=== PATIENT | female | born 1960 | race Native Hawaiian/Other Pacific Islander ===

== ENCOUNTER → 2017-09-15 | Outpatient (CLI) | payer BC ==
[~2017-09-15] MED LIST: ADVI200C9 PO; ALPHTAB PO; ATEN25TA PO; CARD240C6 PO; CARV6.25 PO; CODE30TA PO; DIFL150T PO; DILT1TAB4 PO; LOSA50TA PO; MULTTAB25 PO; NAPR220C22 PO; OMEP20TA93 PO; OXYC1CAP PO; OYST500T77 PO; PREV30CA36 PO; PROM25TA10 PO; STOO100T PO; TAB-TAB PO; [UNRECOGNIZED DRUG - CODE] PO
== END ==
LOC: CPRE 12:27
PROVIDERS: ATTEND Neurological Surgery
DX: Z01.812 Encounter for preprocedural laboratory examination (principal); M48.062 Spinal stenosis, lumbar region with neurogenic claudication; M51.36 Other intervertebral disc degeneration, lumbar region; M43.10 Spondylolisthesis, site unspecified; Z79.01 Long term (current) use of anticoagulants
CPT/HCPCS: 87640; 87641

== ENCOUNTER 2017-09-24 08:30 | Inpatient (IN) | payer BC ==
[~2017-09-24] VITALS: Ht 167.6 cm; Wt 82.0 kg
[~2017-09-24 08:30] MED LIST changes: -ADVI200C9 PO; -CARD240C6 PO; -CARV6.25 PO; -CODE30TA PO; -OYST500T77 PO; -PREV30CA36 PO; -TAB-TAB PO
[2017-10-08] MEDS ORDERED: METOPROLOL TARTRATE 25 MG TAB PO PRN (06:30)
[2017-10-08] MEDS ORDERED: LACTATED RINGER'S 1000 ML IV PRN (06:30)
[2017-10-08] MEDS ORDERED: SODIUM CHLOR 0.9% 1000 ML INJ 1,000 ML IV SCH (06:30)
[2017-10-08] MEDS ORDERED: SODIUM CHLORID 0.9% 500 ML IV PRN (06:30)
[2017-10-08] MEDS ORDERED: CHLORHEXIDINE GLUCONATE 2 % 1 PACK (2 CLOTHS) TOPICAL PRN (06:30)
[2017-10-08] MEDS ORDERED: THROMBIN (TOPICAL) 5,000 UNIT VIAL ONE ×2 (07:03→11:59)
[2017-10-08] MEDS ORDERED: GELFOAM SIZE 100 ONE ×2 (07:03→11:59)
[2017-10-08] MEDS ORDERED: VANCOMYCIN HCL 1000 MG VIAL ONE (07:03)
[2017-10-08] MEDS ORDERED: BUPIVACAINE/EPINEPHRINE 0.5% PF 30 ML VIAL ONE (07:03)
[2017-10-08] MEDS ORDERED: VANCOMYCIN 1 GM/200 ML INJ 200 ML IV ONE (07:30)
[2017-10-08] MEDS ORDERED: ACETAMINOPHEN 1000 MG/100 ML 100 ML IV ONE (08:16)
[2017-10-08] MEDS ORDERED: metroNIDAZOLE 500 MG INJ 100 ML IV ONE (08:52)
[2017-10-08] MEDS: VANCOMYCIN 1000 MG/NS 250 ML ON-CALL IV SCH ×4 (10:46→10:50)
[2017-10-08] MEDS ORDERED: ROCURONIUM INJ 50 MG/5 ML SYRINGE IV PUSH ONE (12:00)
[2017-10-08] MEDS ORDERED: GLYCOPYRROLATE 1 MG/5 ML SYRINGE IV PUSH ONE (12:00)
[2017-10-08] MEDS ORDERED: ePHEDrine/NS 25 MG/5 ML SYRINGE IV ONE (12:00)
[2017-10-08] MEDS ORDERED: PROPOFOL 200 MG/20 ML AMP IV ONE (12:00)
[2017-10-08] MEDS ORDERED: LIDOCAINE HCL 1% PF 5 ML SYRINGE OTHER ONE (12:00)
[2017-10-08] MEDS ORDERED: ONDANSETRON HCL 4 MG/2 ML VIAL IV ONE (12:00)
[2017-10-08] MEDS ORDERED: PHENYLEPHRINE HCL 10 MG/ML VIAL IV ONE (12:00)
[2017-10-08] MEDS ORDERED: NEOSTIGMINE 5 MG/5 ML SYRINGE IV PUSH ONE (12:00)
[2017-10-08] MEDS ORDERED: NORMOSOL R INJ 2,000 ML IV ONE (12:00)
[2017-10-08] MEDS ORDERED: PHENYLEPH/NS 1000 MCG/10 ML SYR IV ONE (12:00)
[2017-10-08] MEDS ORDERED: ACETAMINOPHEN 325 MG TAB PO PRN (13:30)
[2017-10-08] MEDS ORDERED: SENNOSIDES 8.6 MG TAB PO PRN (13:30)
[2017-10-08] MEDS ORDERED: MAGNESIUM SULFATE INJ 2 GM in SODIUM CHLORIDE 0.9% INJ 100 ML IV PRN (13:30)
[2017-10-08] MEDS ORDERED: diphenhydrAMINE HCL 50 MG/ML VIAL IV PUSH PRN (13:30)
[2017-10-08] MEDS ORDERED: cloNIDine HCL 0.1 MG TAB PO PRN (13:30)
[2017-10-08] MEDS ORDERED: MAGNESIUM HYDROXIDE SUSP 30 ML CUP PO PRN (13:30)
[2017-10-08] MEDS ORDERED: SODIUM CHLORIDE 0.9% FLUSH 10 ML FLUSH IV FLUSH PRN (13:30)
[2017-10-08] MEDS ORDERED: ALPHA D GALACTOSIDASE PO PRN (13:30)
[2017-10-08] MEDS ORDERED: CALCIUM GLUCONATE INJ 1 GM in SODIUM CHLORIDE 0.9% INJ 100 ML IV PRN (13:30)
[2017-10-08] MEDS ORDERED: NALOXONE HCL 0.4 MG/ML AMP IV PUSH PRN (13:30)
[2017-10-08] MEDS ORDERED: POTASSIUM CHLOR 20 MEQ PREMIX 100 ML IV PRN (13:30)
[2017-10-08] MEDS ORDERED: PROMETHAZINE HCL 25 MG TAB PO PRN (13:30)
[2017-10-08] MEDS ORDERED: ONDANSETRON HCL 4 MG/2 ML VIAL IV PUSH PRN (13:30)
[2017-10-08] MEDS ORDERED: ZOLPIDEM TARTRATE 5 MG TAB PO PRN (13:30)
[2017-10-08] MEDS ORDERED: MENTHOL LOZENGE BUCCAL PRN (13:30)
[2017-10-08] MEDS ORDERED: BISACODYL 10 MG SUPP RECTAL PRN (13:30)
[2017-10-08] MEDS ORDERED: MIDAZOLAM HCL 2 MG/2 ML VIAL ONE (13:42)
--- NOTE | 2017-10-08 13:43 | PD.OP ---
Carol Jorgensen M.D. Operative Report Date of Surgery: Oct 08, 2017 Preoperative Diagnosis: Intractable low back pain with radiculopathy; L3-4 central disc herniation with facet hypertrophy with associated spinal stenosis; L4-5 degenerative disc disease with facet arthropathy and associated spinal/foraminal stenosis; L4-5 postlaminectomy syndrome with spondylolisthesis Postoperative Diagnosis: Same Procedure: Lumbar L4-5 transforaminal interbody fusion; L3-4 and L4-5 decompressive laminotomies and microdiscectomy; L4-5 pedicle screw fixation; L4-5 interbody cage placement; microsurgical technique Anesthesia: Gen. endotracheal by Aparna spaulding Surgeon: Koko Cedillo M.D. Asbestos Siding Installer(s): Michelle Olivo Operation and Findings: Following initiation of general endotracheal anesthesia, the patient had a Zavala catheter placed along with sequential compression devices. A central line was placed given her poor peripheral IV access by the anesthesiologist. A gram of vancomycin and Diflucan 500 mg was administered intravenously and she was turned in a prone position on a Jayson frame, on a Juancho table, and all pressure points adequately padded. The lumbosacral region was then prepped with Chloraprep and sterilely draped with Ioban along the usual sterile draping. A midline skin incision was then made extending from the previous L4- L5 incision extending superiorly to the L3 level after infiltrating the skin with 0.5% Marcaine with epinephrine solution extending down through the fascia. The muscle fibers were split using avascular fatty plane and detached from the underlying facets, transverse process and lateral portion of lamina on the left side and a self-retaining retractor used for exposure. Intraoperative fluoroscopy was also used for level of confirmation along with microscope magnification for further dissection. There was significant facet and ligamentum flavum hypertrophy noted at the L3-4 and L4-5 levels with the hemilaminotomy noticed at the L4-5 level with epidural scar tissue. Left L4-5 medial facet was resected with a drill bit along with the lamina and there was severe foraminal and lateral recess stenosis from hypertrophied ligamentum flavum and facet which was decompressed. There was significant disc height collapse along with central disc protrusion also leading to the foraminal stenosis. Epidural hemostasis was achieved with bipolar cautery and Gelfoam with thrombin. Subsequently entered into the disc space at the L4-5 level with a #15 blade and holden were used for discectomy. I then placed PEEK cage packed with local autograft bone and more local autograft bone was packed adjacent to the cage in interspace for added interbody fusion. With placement of the cage, I was able to distract the interspace and opened up the foramen further bilaterally. Subsequently in order to facilitate the fusion and provide stabilization, pedicle screw fixation was undertaken using Stollings spine screws on entry point at the left L4-5 levels at the junction of the transverse process and facet. Subsequently using AP and lateral fluoroscopy tap and screw placement. The screws were then connected with a madison and locked in place with caps. The construct appeared very secure at this point. Left L3- 4 hemilaminotomy with medial facetectomy also undertaken and the underlying hypertrophied ligamentum flavum resected. With gentle thecal sac retraction central disc herniation was evident and the microdiscectomy undertaken. The area was then copiously irrigated with Vancomycin solution and powder. The retractors were removed and the bipolar cautery used for hemostasis. The muscle fascia was then approximated using 2-0 Vicryl interrupted stitches and then 3-0 Vicryl subcuticular stitches also placed in interrupted fashion. The final skin closure was completed with parker. A sterile dressing was then applied. The patient then turned in supine position, extubated and taken to recovery room. There were no intraoperative complications. All sponge and needle counts were correct at the end of procedure. Estimated blood loss about 100 ml. Koko Cedillo MD Oct 08, 2017 13:43
--- NOTE | 2017-10-08 13:43 | RADRPT ---
EXAM DATE/TIME: 10/08/2017 09:13 [facility] COMPARISON: FLUOROSCOPY PORTABLE UP TO 1HR, October 08, 2017, 0:00. INDICATIONS : L3-4 Laminectomy with lumbar fusion at L4-5. MEDICAL HISTORY : Hypertension. Carcinoma, breast. Osteoarthritis. GERD. SURGICAL HISTORY : Appendectomy. Cholecystectomy. Right side lumpectomy. ENCOUNTER: Initial ACUITY: 1 day PAIN SCORE: Non-responsive. LOCATION: Lumabr spine. FINDINGS: The examination demonstrates transpedicular screws on the left side across the L4-5 level. The screws appear well-positioned. The spacing material between the vertebral bodies appears well-positioned. CONCLUSION: 1. Surgical hardware in excellent position. 2. Good alignment of the lumbar spine. Armond Sultana MD on October 08, 2017 at 13:40 Board Certified Radiologist. This report was verified electronically.
[2017-10-08] MEDS ORDERED: *morphine SULFATE 8 MG/ML PERIprocedure ONLY ONE ×2 (13:44→14:25)
[2017-10-08] MEDS ORDERED: *ONDANSETRON 4 MG VIAL PERIprocedural Use ONLY ONE (13:45)
[2017-10-08] MEDS: PCA - TOTAL MG MORPHINE DELIVERED PER SHIFT SCH ×2 (14:00→21:35)
--- NOTE | 2017-10-08 14:07 | EKG ---
Date Performed: 10/08/2017 Time Performed: 06:41:15 PTAGE: 57 years EKG: Sinus rhythm WITH FIRST DEGREE AV BLOCK ABNORMAL ECG Since the PREVIOUS TRACING , no significant change noted PREVIOUS TRACIN05/31/2009 07.20 DOCTOR: Heather Muñiz Interpretating Date/Time 10/08/2017 13:57:58
[2017-10-08 14:13] LABS: AUTOMATED NEUTROPHIL # 2.5 TH/MM3 (1.8-7.7); BASOPHIL % 0.7 % (0.0-2.0); EOSINOPHIL # 0.1 TH/MM3 (0-0.4); EOSINOPHIL % 1.3 % (0.0-4.0); HEMATOCRIT 34.1 % (35.0-46.0); HEMOGLOBIN 11.4 GM/DL (11.6-15.3); LYMPH % 40.9 % (9.0-44.0); MEAN CELL VOLUME 84.8 FL (80.0-100.0); MEAN CORPUSCULAR HEMOGLOBIN 28.3 PG (27.0-34.0); MEAN CORPUSCULAR HGB CONC 33.4 % (32.0-36.0); MEAN PLATELET VOLUME 7.4 FL (7.0-11.0); MONO % 7.1 % (0.0-8.0); MONOCYTE # 0.4 TH/MM3 (0-0.9); PLATELET COUNT 245 TH/MM3 (150-450); RED BLOOD COUNT 4.03 MIL/MM3 (4.00-5.30); RED CELL DISTRIBUTION WIDTH 14.7 % (11.6-17.2); WHITE BLOOD COUNT 4.9 TH/MM3 (4.0-11.0)
[2017-10-08 14:35] LABS: BICARBONATE 28.3 MEQ/L (21.0-32.0); CREATININE 0.47 MG/DL (0.50-1.00)
--- NOTE | 2017-10-08 14:35 | RADRPT ---
EXAM DATE/TIME: 10/08/2017 13:43 [facility] COMPARISON: No previous studies available for comparison. INDICATIONS : Central line placement. MEDICAL HISTORY : Hypertension. Carcinoma, breast. Osteoarthritis. GERD. SURGICAL HISTORY : Appendectomy. Cholecystectomy. Lumpectomy, right. ENCOUNTER: Initial ACUITY: 1 day PAIN SCORE: Non-responsive. LOCATION: Bilateral chest FINDINGS: A single view of the chest demonstrates left central line in superior cava. Scattered subsegmental ai r space disease in the lungs. No effusion. No pneumothorax. CONCLUSION: 1. Left central line in superior vena cava without pneumothorax. Scattered subsegmental atelectasis i n the lungs. Baldomero Pelayo MD on October 08, 2017 at 14:33 Board Certified Radiologist. This report was verified electronically.
[2017-10-08] MEDS: NS + KCL 20 MEQ INJ 1,000 ML IV SCH (14:40)
[2017-10-08] MEDS ORDERED: DO NOT ADM ANY ANTICOAGULANT DRUGS PRN (14:45)
[2017-10-08] MEDS: MORPHINE SULFATE 30 MG/30 ML PCA IV SCH (16:18)
[2017-10-08 16:45] LABS: CALCIUM-PROTEIN CORRECTED 8.8 MG/DL (8.5-10.1); TOTAL PROTEIN 5.7 GM/DL (6.4-8.2)
[2017-10-08] MEDS: METOCLOPRAMIDE HCL 10 MG/2 ML VIAL IVS SCH (17:00)
[2017-10-08 17:23] VITALS: BP 111/64; PULSE 83; RESP 18; TEMP 96.6; O2SAT 99
--- NOTE | 2017-10-08 17:24 | PD.CONS ---
HPI Service [facility] Hospitalists Consult Requested By Dr. Cedillo Reason for Consult Medical management Primary Care Physician Carol Jorgensen M.D. Diagnoses: (1) Status post laminectomy (2) Intractable low back pain History of Present Illness This is a 57-year-old female patient with a known medical history of hypertension, GERD and breast cancer who underwent a lumbar L4-5 transforaminal interbody fusion; L3-4 and L4-5 decompressive laminotomies and microdiscectomy; L4-5 pedicle screw fixation; L4-5 interbody cage placement today by Dr. Cedillo. Hospitalist team has been consulted for medical management. Patient is seen and examined in room status post surgery, lethargic but awakens to voice. Rather poor historian at this time. Family at bedside assisting with history. There are no medical records for review at this time. Supposedly patient has been following with Dr. Cedillo in the outpatient setting for chronic back pain. Denies any recent fever, chills, cough, abdominal pain, nausea, vomiting, diarrhea or dysuria. Hypertension has been controlled with Cardizem, atenolol and losartan at home. Supposedly patient has been undergoing treatment for breast cancer with history of right breast lumpectomy with radiation, currently on p.o. chemotherapy. Oncologist is Dr. Monsivais from [facility]. PCP is Dr. Jorgensen. Review of Systems Constitutional: DENIES: Fever, Chills Eyes: DENIES: Blurred vision, Diplopia Respiratory: DENIES: Cough Cardiovascular: DENIES: Chest pain Gastrointestinal: DENIES: Abdominal pain Musculoskeletal: COMPLAINS OF: Joint pain, Back pain, Neck pain Psychiatric: DENIES: Anxiety Except as stated in HPI: all other systems reviewed are Neg Past Family Social History Allergies: Coded Allergies: adhesive (Unverified Allergy, Severe, SEVERE SKIN RXN, 10/08/17) PAPER TAPE O.K. coconut (Verified Allergy, Severe, HIVES, 10/08/17) diatrizoate meglumine (Unverified Allergy, Severe, HIVES, 10/08/17) gadobenic acid (Unverified Allergy, Severe, HIVES, 10/08/17) gadodiamide (Unverified Allergy, Severe, HIVES, 10/08/17) gadoteridol (Unverified Allergy, Severe, HIVES, 10/08/17) green pepper (Verified Allergy, Severe, HIVES, 10/08/17) iodixanol (Unverified Allergy, Severe, HIVES, 10/08/17) iohexol (Unverified Allergy, Severe, HIVES, 10/08/17) Past Medical History Osteoarthritis Breast cancer Hypertension GERD Hiatal hernia Herniated disc Past Surgical History Right knee tumor removal Cholecystectomy Appendectomy Hysterectomy Sinus surgery 7 Fungal tumor removal unspecified Left shoulder repair Lymph node removal Right breast lumpectomy with radiation Reported Medications Active Reported Fareston (Toremifene Citrate) 60 Mg Tab 60 Mg PO DAILY Aleve (Naproxen Sodium) 220 Mg Capsule 1 Cap PO DAILY Oxycodone (Oxycodone HCl) 5 Mg Cap 5 Mg PO Q6H PRN Phenergan (Promethazine HCl) 25 Mg Tablet 25 Mg PO Q6H PRN Beano (Bqarw-Q-Cdvzdlnluiskt) 150 Unit Tablet 1 Tab PO TID PRN Stool Softener (Docusate Sodium) 100 Mg Tab 1 Tab PO DAILY Multi For Her 50+ (Multiple Vitamins W/ Minerals) 0.4 Mg-250 Mcg Tab 1 Tab PO DAILY Losartan (Losartan Potassium) 50 Mg Tab 50 Mg PO DAILY Omeprazole 20 Mg Tab 20 Mg PO BID Atenolol 25 Mg Tab 25 Mg PO DAILY Diltiazem ER 24 HR 240 Mg Tony 240 Mg PO DAILY Active Ordered Medications Current Medications Medications (Trade) Dose Ordered Sig/Shira Route Start Time Stop Time Status Last Admin (Lopressor) 25 mg BOOM STICK WORKER PRN PO 10/08/17 06:30 10/11/17 06:29 (Chlorhexidine 2% Cloth) 3 pack BOOM STICK WORKER PRN TOPICAL 10/08/17 06:30 10/11/17 06:29 10/08/17 07:00 Vancomycin HCl 1000 mg/Sodium Chloride 250 ml @ 250 mls/hr BOOM STICK WORKER IV 10/08/17 06:30 10/11/17 06:29 10/08/17 10:50 (Tenormin) 25 mg DAILY PO 10/09/17 09:00 (Cardizem Cd) 240 mg DAILY PO 10/09/17 09:00 (Cozaar) 50 mg DAILY PO 10/09/17 09:00 (Theragran M Tab) 1 tab DAILY PO 10/09/17 09:00 (Protonix) 20 mg BID PO 10/08/17 21:00 Patient Own Medication PT OWN MED: Toremif... DAILY PO 10/09/17 09:00 Future Hold Potassium Chloride/Sodium Chloride 1,000 ml @ 100 mls/hr Q10H IV 10/08/17 16:00 10/08/17 14:40 (NS Flush) 2 ml UNSCH PRN IV FLUSH 10/08/17 13:30 (NS Flush) 2 ml BID IV FLUSH 10/08/17 21:00 Cefazolin Sodium 1000 mg/Sodium Chloride 100 ml @ 200 mls/hr Q8H IV 10/08/17 17:00 10/09/17 09:29 10/08/17 17:00 (Mag-Al Plus Susp Liq) 30 ml Q6H PRN PO 10/08/17 13:30 (Reglan Inj) 10 mg Q8H IVS 10/08/17 17:00 10/08/17 17:00 (Zofran Inj) 4 mg Q6H PRN IV PUSH 10/08/17 13:30 (Phenergan Inj) 25 mg Q4H PRN IM 10/08/17 13:30 Calcium Gluconate 1 gm/Sodium Chloride 110 ml @ 110 mls/hr UNSCH PRN IV 10/08/17 13:30 Potassium Chloride 100 ml @ 50 mls/hr UNSCH PRN IV 10/08/17 13:30 10/08/17 16:15 Magnesium Sulfate 2 gm/Sodium Chloride 104 ml @ 100 mls/hr UNSCH PRN IV 10/08/17 13:30 (Flexeril) 10 mg Q8H PO 10/08/17 18:00 (Catapres) 0.1 mg Q6H PRN PO 10/08/17 13:30 (Tylenol) 650 mg Q4H PRN PO 10/08/17 13:30 (Pomeroy Dar) 1 lozenge UNSCH PRN BUCCAL 10/08/17 13:30 (Ambien) 5 mg HS PRN PO 10/08/17 13:30 (Albuterol Neb) 2.5 mg Q4HR NEB PRN NEB 10/08/17 13:30 (Jessica-Colace) 1 tab BID PO 10/08/17 21:00 (Milk Of Magnesia Liq) 30 ml Q12H PRN PO 10/08/17 13:30 (Senokot) 17.2 mg Q12H PRN PO 10/08/17 13:30 (Dulcolax Supp) 10 mg DAILY PRN RECTAL 10/08/17 13:30 (Lactulose Liq) 30 ml DAILY PO 10/09/17 09:00 (Percocet 10-325 Mg) 1 tab Q4H PRN PO 10/08/17 13:30 (Percocet 10-325 Mg) 2 tab Q4H PRN PO 10/08/17 13:30 (Narcan Inj) 0.4 mg UNSCH PRN IV PUSH 10/08/17 13:30 (Benadryl Inj) 25 mg Q6H PRN IV PUSH 10/08/17 13:30 (Morphine 1 Mg/ ml FILTRATION SUPERVISOR) 30 mg UNSCH IV 10/08/17 13:30 10/08/17 16:18 FILTRATION SUPERVISOR Dosage Infused (Pha) 1 Q8HR .XX 10/08/17 14:00 Miscellaneous Information ALL NURSING DEPARTME... UNSCH PRN .XX 10/08/17 14:45 10/09/17 14:44 Family History Family medical history significant for unspecified cancer. And hypertension. Social History Patient denies any current or history of tobacco use, denies any alcohol use or illicit drug use. Physical Exam Vital Signs Vital Signs Date Time Temp Pulse Resp B/P (MAP) Pulse Ox O2 Delivery O2 Flow Rate FiO2 10/08/17 16:18 14 10/08/17 16:00 65 16 102/57 (72) 100 Nasal Cannula 3 10/08/17 15:00 67 16 106/57 (73) 96 Nasal Cannula 3 10/08/17 14:45 66 16 116/57 (76) 100 Nasal Cannula 3 10/08/17 14:30 63 16 110/57 (74) 100 Nasal Cannula 3 10/08/17 14:15 69 16 116/63 (80) 97 Nasal Cannula 3 10/08/17 14:00 77 16 117/56 (76) 94 Nasal Cannula 3 10/08/17 13:45 79 16 126/69 (88) 97 Nasal Cannula 3 10/08/17 13:30 98.5 100 16 126/69 (88) 98 Nasal Cannula 3 10/08/17 06:51 97.7 69 20 119/68 (85) 97 Physical Exam GENERAL: Well-developed, well-nourished patient in NAD. On supplemental O2. Status post surgery, with some drowsiness. Denies any pain. SKIN: Warm and dry. No rash. HEAD: Normocephalic. Atraumatic. EYES: Pupils equal and round. No scleral icterus. No injection or drainage. ENT: No nasal bleeding or discharge. Mucous membranes pink and moist. NECK: Supple. Trachea midline. CARDIOVASCULAR: Regular rate and rhythm. S1, S2 noted. No murmur appreciated. RESPIRATORY: No accessory muscle use. Clear to auscultation. Breath sounds equal bilaterally. GASTROINTESTINAL: Abdomen soft, non-tender, nondistended. Normoactive bowel sounds x4. MUSCULOSKELETAL: No obvious deformities. Extremities without clubbing, cyanosis , or edema. NEUROLOGICAL: Lethargic secondary to anesthesia. No obvious cranial nerve deficits. Motor grossly within normal limits. 5/5 muscle strength in bilateral upper and lower extremities. Normal speech. Laboratory Laboratory Tests Test 10/08/17 13:53 White Blood Count 4.9 Red Blood Count 4.03 Hemoglobin 11.4 Hematocrit 34.1 Mean Corpuscular Volume 84.8 Mean Corpuscular Hemoglobin 28.3 Mean Corpuscular Hemoglobin Concent 33.4 Red Cell Distribution Width 14.7 Platelet Count 245 Mean Platelet Volume 7.4 Neutrophils (%) (Auto) 50.0 Lymphocytes (%) (Auto) 40.9 Monocytes (%) (Auto) 7.1 Eosinophils (%) (Auto) 1.3 Basophils (%) (Auto) 0.7 Neutrophils # (Auto) 2.5 Lymphocytes # (Auto) 2.0 Monocytes # (Auto) 0.4 Eosinophils # (Auto) 0.1 Basophils # (Auto) 0.0 CBC Comment DIFF FINAL Differential Comment Blood Urea Nitrogen 8 Creatinine 0.47 Random Glucose 105 Total Protein 5.7 Calcium Level 8.0 Magnesium Level 2.0 Sodium Level 147 Potassium Level 3.5 Chloride Level 110 Carbon Dioxide Level 28.3 Anion Gap 9 Estimat Glomerular Filtration Rate 136 Protein Corrected Calcium 8.8 Result Diagram: 10/08/17 1353 10/08/17 1353 Imaging Last Impressions Lumbar Spine X-Ray 10/08/17 0000 Signed Impressions: Service Date/Time: September 09:13 - CONCLUSION: 1. Surgical hardware in excellent position. 2. Good alignment of the lumbar spine. Armond Sultana MD Chest X-Ray 10/08/17 0000 Signed Impressions: Service Date/Time: September 13:43 - CONCLUSION: 1. Left central line in superior vena cava without pneumothorax. Scattered subsegmental atelectasis in the lungs. Baldomero Pelayo MD Assessment and Plan Assessment and Plan This is a 57-year-old female patient with a known medical history of hypertension, GERD and breast cancer who underwent a lumbar L4-5 transforaminal interbody fusion; L3-4 and L4-5 decompressive laminotomies and microdiscectomy; L4-5 pedicle screw fixation; L4-5 interbody cage placement today by Dr. Cedillo. Hospitalist team has been consulted for medical management. Status post laminectomy with fusion by Dr. Cedillo 10/08/17 Management per neurosurgery team. Control pain, morphine FILTRATION SUPERVISOR for now. Percocet p.o. available. Per pain scale. Controlled nausea, Phenergan available. Monitor for any constipation, placed on multiple medications. Monitor for BM. Ensure hydration, continue IV fluids. Will order p.o. diet, advance as tolerated. CBC and BMP reviewed, essentially unremarkable. Supplemental as to as needed, keep oxygen saturations above 92%. Supportive care. Hypertension, chronic: Continue home medications including losartan, Cardizem and atenolol. Monitor BP trends. Controlled at this time. GERD: Continue home PPI. Right breast cancer, status post right lumpectomy with radiation currently undergoing p.o. chemotherapy: Continue home medications. Supportive care. DVT prophylaxis: SCDs. Chemical prophylaxis per neurosurgery recommendations. Thank you for this consultation, we will follow with you. Elizabeth Calderon Oct 08, 2017 17:24
[2017-10-08] MEDS ORDERED: PANTOPRAZOLE SOD 20 MG DELAYED RELEASE TAB PO ONE (18:00)
[2017-10-08] MEDS: CYCLOBENZAPRINE HCL 10 MG TAB PO SCH (18:13)
[2017-10-08 21:19] VITALS: BP 108/59; PULSE 84; RESP 18; TEMP 97.1; O2SAT 96
[2017-10-08] MEDS: PANTOPRAZOLE SOD 20 MG DELAYED RELEASE TAB PO SCH (21:35)
[2017-10-08] MEDS: DOCUSATE SODIUM 50 MG/SENNA 8.6 MG TAB PO SCH (21:35)
[2017-10-08] MEDS: SODIUM CHLORIDE 0.9% FLUSH 10 ML FLUSH IV FLUSH SCH (21:35)
[2017-10-08] MEDS: oxyCODONE/ACETAMINOPHEN 10 MG/325 MG TAB PO PRN (21:36)
[2017-10-08] MEDS: PROMETHAZINE INJ 25 MG/ML VIAL IM PRN (21:37)
[2017-10-09] VITALS (9 sets, daily range): BP systolic 106–137; BP diastolic 60–77; PULSE 74–114; RESP 17–18; TEMP 96.7–99.9; O2SAT 91–98
[2017-10-09] MEDS: METOCLOPRAMIDE HCL 10 MG/2 ML VIAL IVS SCH ×4 (00:27→23:55)
[2017-10-09] MEDS: NS + KCL 20 MEQ INJ 1,000 ML IV SCH ×3 (02:16→19:55)
[2017-10-09] MEDS: CYCLOBENZAPRINE HCL 10 MG TAB PO SCH ×2 (02:17→10:00)
[2017-10-09] MEDS: oxyCODONE/ACETAMINOPHEN 10 MG/325 MG TAB PO PRN ×3 (02:59→21:07)
[2017-10-09] MEDS: DILTIAZEM-CD 240 MG CAP ER PO SCH (08:45)
[2017-10-09] MEDS: DOCUSATE SODIUM 50 MG/SENNA 8.6 MG TAB PO SCH ×2 (08:45→19:53)
[2017-10-09] MEDS: MULTIVITAMINS/MINERALS THERAPEUTIC TAB PO SCH (08:45)
[2017-10-09] MEDS: LOSARTAN 50 MG TAB PO SCH (08:45)
[2017-10-09] MEDS: ATENOLOL 25 MG TAB PO SCH (08:45)
[2017-10-09] MEDS: PANTOPRAZOLE SOD 20 MG DELAYED RELEASE TAB PO SCH ×2 (08:52→19:53)
[2017-10-09] MEDS: SODIUM CHLORIDE 0.9% FLUSH 10 ML FLUSH IV FLUSH SCH ×2 (08:52→19:57)
[2017-10-09] MEDS ORDERED: PNEUMOCOCCAL POLYVALENT INJ 25 MCG/0.5 ML SYR IM ONE (09:00)
[2017-10-09] MEDS ORDERED: [UNRECOGNIZED DRUG - OTHER] PO SCH (09:00)
[2017-10-09] MEDS: LACTULOSE SYRUP 20 GM/30 ML CUP PO SCH (09:00)
--- NOTE | 2017-10-09 09:09 | HHI.NSPN ---
(Pawan Wilkerson) History Chief Complaint: Incisional pain and left leg pain. (Pawan Wilkerson) Interval History 10/09/17: Pt s/p lumbar L4-5 transforaminal interbody fusion; L3-4 and L4-5 decompressive laminotomies and microdiscectomy; L4-5 pedicle screw fixation; L4- 5 interbody cage placement on 10/08/17. She complains of severe pain this morning. She complains of incisional pain radiating into the left leg but is not clear on exact distribution. She states her legs feel sensitive all over. She also has some nausea. (Pawan Wilkerson) Review of Systems General: Negative for: fever, chills, insomnia Respiratory: Negative for: shortness of breath, cough, sputum Cardiovascular: Negative for: chest pain Gastrointestinal: Positive for: nausea, Negative for: vomitting, diarrhea, constipation (Pawan Wilkerson) Exam Results Vital Signs Date Time Temp Pulse Resp B/P (MAP) Pulse Ox O2 Delivery O2 Flow Rate FiO2 10/09/17 03:00 97.6 108 18 116/67 (83) 98 10/08/17 17:20 Nasal Cannula 3 Intake and Output 10/09/17 10/09/17 10/10/17 08:00 16:00 00:00 Intake Total 360 ml Output Total 650 ml Balance -290 ml (Pawan Wilkerson) Physical Examination General: Pt resting in bed complaining of pain. Resp: CTA bilaterally Heart: NSR no murmurs Abd: Soft positive bs Skin: No cyanosis or erythema. Pt currently to painful to role. Muscle: Moves LEs with antigravity strength but difficult to assess strength given current discomfort. Neuro: Pt awake and alert. Follows commands well. Speech clear and appropriate. LEs sensitive to touch. (Pawan Wilkerson) Lab, Micro, Other Results Last Impressions Lumbar Spine X-Ray 10/08/17 0000 Signed Impressions: Service Date/Time: September 09:13 - CONCLUSION: 1. Surgical hardware in excellent position. 2. Good alignment of the lumbar spine. Armond Sultana MD Chest X-Ray 10/08/17 0000 Signed Impressions: Service Date/Time: September 13:43 - CONCLUSION: 1. Left central line in superior vena cava without pneumothorax. Scattered subsegmental atelectasis in the lungs. Baldomero Pelayo MD Laboratory Tests Test 10/08/17 13:53 White Blood Count 4.9 TH/MM3 Red Blood Count 4.03 MIL/MM3 Hemoglobin 11.4 GM/DL Hematocrit 34.1 % Mean Corpuscular Volume 84.8 FL Mean Corpuscular Hemoglobin 28.3 PG Mean Corpuscular Hemoglobin Concent 33.4 % Red Cell Distribution Width 14.7 % Platelet Count 245 TH/MM3 Mean Platelet Volume 7.4 FL Neutrophils (%) (Auto) 50.0 % Lymphocytes (%) (Auto) 40.9 % Monocytes (%) (Auto) 7.1 % Eosinophils (%) (Auto) 1.3 % Basophils (%) (Auto) 0.7 % Neutrophils # (Auto) 2.5 TH/MM3 Lymphocytes # (Auto) 2.0 TH/MM3 Monocytes # (Auto) 0.4 TH/MM3 Eosinophils # (Auto) 0.1 TH/MM3 Basophils # (Auto) 0.0 TH/MM3 CBC Comment DIFF FINAL Differential Comment Blood Urea Nitrogen 8 MG/DL Creatinine 0.47 MG/DL Random Glucose 105 MG/DL Total Protein 5.7 GM/DL Calcium Level 8.0 MG/DL Magnesium Level 2.0 MG/DL Sodium Level 147 MEQ/L Potassium Level 3.5 MEQ/L Chloride Level 110 MEQ/L Carbon Dioxide Level 28.3 MEQ/L Anion Gap 9 MEQ/L Estimat Glomerular Filtration Rate 136 ML/MIN Protein Corrected Calcium 8.8 MG/DL (Pawan Wilkerson) Medical Decision Making Impression and Plan A: 57 y/o FM s/p L3/L4 and L4/L5 decompressive laminectomy with L4/L5 TLIF with cage and pedicle screw fixation. P: Continue to monitor Discussed with RN will continue with FUNERAL SALES MANAGER and also use the oral pain medication for longer lasting pain control. Zofran for anti emetic Diflucan for fungal per pts request. Quick draw lumbar brace on when oob. (Pawan Wilkerson) Attending Statement The exam, history, and the medical decision-making described in the above note were completed with the assistance of the mid-level provider. I reviewed and agree with the findings presented. I attest that I had a [id number] encounter with the patient on the same day, and personally performed and documented my assessment and findings in the medical record. Continue with pain control and IV fluids. Encouraged her to sit up in chair and ambulate with assistance. Zavala removed and voiding well. Chemical DVT prophylaxis to initiate 48 hours postop and continue with mechanical DVT prophylaxis for now. Will require inpatient rehabilitation. (Koko Cedillo MD) Pawan Wilkerson Oct 09, 2017 09:09 Koko Cedillo MD Oct 09, 2017 13:39
[2017-10-09] MEDS ORDERED: FLUCONAZOLE 100 MG TAB PO ONE (09:45)
[2017-10-09 12:15] LABS: AUTOMATED NEUTROPHIL # 9.9 TH/MM3 (1.8-7.7); BASOPHIL % 0.4 % (0.0-2.0); EOSINOPHIL % 0.1 % (0.0-4.0); HEMOGLOBIN 11.9 GM/DL (11.6-15.3); LYMPH % 10.5 % (9.0-44.0); LYMPHOCYTE # 1.3 TH/MM3 (1.0-4.8); MEAN CELL VOLUME 85.5 FL (80.0-100.0); MEAN CORPUSCULAR HEMOGLOBIN 28.2 PG (27.0-34.0); MEAN PLATELET VOLUME 7.7 FL (7.0-11.0); MONO % 7.9 % (0.0-8.0); NEUT % 81.1 % (16.0-70.0); PLATELET COUNT 251 TH/MM3 (150-450); RED BLOOD COUNT 4.21 MIL/MM3 (4.00-5.30); RED CELL DISTRIBUTION WIDTH 15.1 % (11.6-17.2); WHITE BLOOD COUNT 12.2 TH/MM3 (4.0-11.0)
[2017-10-09 12:29] LABS: CALCIUM 8.5 MG/DL (8.5-10.1); CREATININE 0.63 MG/DL (0.50-1.00)
--- NOTE | 2017-10-09 12:55 | HHI.PR ---
Subjective Remarks Follow-up on patient status post lumbar laminectomy and fusion L3 to L5. Patient seen and examined. Patient complains of significant pain. She is somnolent and repetitively falls asleep during questioning however she awakes easily and answers questions appropriately. She complains of nausea. She's been unable to tolerate diet. She denies any fever or chills. Denies any chest pain or shortness of breath. She denies any vomiting or abdominal pain. She is afebrile. VSS. Objective Vitals Vital Signs Date Time Temp Pulse Resp B/P (MAP) Pulse Ox O2 Delivery O2 Flow Rate FiO2 10/09/17 12:00 96.7 111 18 122/74 (90) 91 10/09/17 10:38 97 Nasal Cannula 3.00 10/09/17 08:00 97.4 114 18 132/65 (87) 97 10/09/17 03:00 97.6 108 18 116/67 (83) 98 10/09/17 00:11 96.7 105 18 106/70 (82) 97 10/08/17 21:35 18 10/08/17 21:19 97.1 84 18 108/59 (75) 96 10/08/17 17:23 96.6 83 18 111/64 (80) 99 10/08/17 17:20 69 16 105/63 (77) 98 Nasal Cannula 3 10/08/17 17:00 67 16 101/63 (76) 100 Nasal Cannula 3 10/08/17 16:18 14 10/08/17 16:00 65 16 102/57 (72) 100 Nasal Cannula 3 10/08/17 15:00 67 16 106/57 (73) 96 Nasal Cannula 3 10/08/17 14:45 66 16 116/57 (76) 100 Nasal Cannula 3 10/08/17 14:30 63 16 110/57 (74) 100 Nasal Cannula 3 10/08/17 14:15 69 16 116/63 (80) 97 Nasal Cannula 3 10/08/17 14:00 77 16 117/56 (76) 94 Nasal Cannula 3 10/08/17 14:00 16 10/08/17 13:45 79 16 126/69 (88) 97 Nasal Cannula 3 10/08/17 13:30 98.5 100 16 126/69 (88) 98 Nasal Cannula 3 I/O 10/08/17 10/08/17 10/08/17 10/09/17 10/09/17 10/09/17 07:00 15:00 23:00 07:00 15:00 23:00 Intake Total 2000 ml 740 ml 360 ml Output Total 800 ml 1025 ml 650 ml Balance 1200 ml -285 ml -290 ml Intake Oral 480 ml 360 ml IV Total 260 ml Other 2000 ml Output Urine Total 700 ml 1025 ml 650 ml Estimated Blood Loss 100 ml # Bowel Movements 0 0 Result Diagram: 10/09/17 1117 10/09/17 1117 Imaging Last Impressions Lumbar Spine X-Ray 10/08/17 0000 Signed Impressions: Service Date/Time: September 09:13 - CONCLUSION: 1. Surgical hardware in excellent position. 2. Good alignment of the lumbar spine. Armond Sultana MD Chest X-Ray 10/08/17 0000 Signed Impressions: Service Date/Time: September 13:43 - CONCLUSION: 1. Left central line in superior vena cava without pneumothorax. Scattered subsegmental atelectasis in the lungs. Baldomero Pelayo MD Objective Remarks GENERAL: Well-nourished, well-developed female patient in [facility]. Somnolent. Easily arousable with voice. SKIN: Warm and dry. No rash. HEAD: Normocephalic. Atraumatic. EYES: EOMI. No scleral icterus. No injection or drainage. ENT: No nasal bleeding or discharge. Mucous membranes pink and moist. NECK: Trachea midline. CARDIOVASCULAR: Tachycardic. S1, S2 noted. No murmur appreciated. RESPIRATORY: Nonlabored. Clear to auscultation. Breath sounds equal bilaterally. GASTROINTESTINAL: Abdomen soft, non-tender, nondistended. Hypoactive bowel sounds x4. MUSCULOSKELETAL: No obvious deformities. Extremities without clubbing, cyanosis , or edema. NEUROLOGICAL: Awake and alert. No obvious cranial nerve deficits. Able to move all extremities spontaneously. No focal neurologic findings appreciated. Normal speech. PSYCHIATRIC: Somnolent. Appropriate mood and affect; insight and judgment normal. Procedures s/p umbar L4-5 transforaminal interbody fusion; L3-4 and L4-5 decompressive laminotomies and microdiscectomy; L4-5 pedicle screw fixation; L4-5 interbody cage placement on 10/08/17 Medications and IVs Current Medications Medications (Trade) Dose Ordered Sig/Shira Route Start Time Stop Time Status Last Admin (Lopressor) 25 mg AUTO DEALER PRN PO 10/08/17 06:30 10/11/17 06:29 (Chlorhexidine 2% Cloth) 3 pack AUTO DEALER PRN TOPICAL 10/08/17 06:30 10/11/17 06:29 10/08/17 07:00 Vancomycin HCl 1000 mg/Sodium Chloride 250 ml @ 250 mls/hr AUTO DEALER IV 10/08/17 06:30 10/11/17 06:29 10/08/17 10:50 (Tenormin) 25 mg DAILY PO 10/09/17 09:00 10/09/17 08:45 (Cardizem Cd) 240 mg DAILY PO 10/09/17 09:00 10/09/17 08:45 (Cozaar) 50 mg DAILY PO 10/09/17 09:00 10/09/17 08:45 (Theragran M Tab) 1 tab DAILY PO 10/09/17 09:00 10/09/17 08:45 (Protonix) 20 mg BID PO 10/08/17 21:00 10/09/17 08:52 Patient Own Medication PT OWN MED: Toremif... DAILY PO 10/09/17 09:00 Future Hold Potassium Chloride/Sodium Chloride 1,000 ml @ 100 mls/hr Q10H IV 10/08/17 16:00 10/09/17 12:00 (NS Flush) 2 ml UNSCH PRN IV FLUSH 10/08/17 13:30 10/09/17 00:28 (NS Flush) 2 ml BID IV FLUSH 10/08/17 21:00 10/09/17 08:52 (Mag-Al Plus Susp Liq) 30 ml Q6H PRN PO 10/08/17 13:30 (Reglan Inj) 10 mg Q8H IVS 10/08/17 17:00 10/09/17 08:44 (Zofran Inj) 4 mg Q6H PRN IV PUSH 10/08/17 13:30 10/08/17 18:13 (Phenergan Inj) 25 mg Q4H PRN IM 10/08/17 13:30 10/08/17 21:37 Calcium Gluconate 1 gm/Sodium Chloride 110 ml @ 110 mls/hr UNSCH PRN IV 10/08/17 13:30 Potassium Chloride 100 ml @ 50 mls/hr UNSCH PRN IV 10/08/17 13:30 10/08/17 16:15 Magnesium Sulfate 2 gm/Sodium Chloride 104 ml @ 100 mls/hr UNSCH PRN IV 10/08/17 13:30 (Flexeril) 10 mg Q8H PO 10/08/17 18:00 10/09/17 10:00 (Catapres) 0.1 mg Q6H PRN PO 10/08/17 13:30 (Tylenol) 650 mg Q4H PRN PO 10/08/17 13:30 ([place] Dar) 1 lozenge UNSCH PRN BUCCAL 10/08/17 13:30 (Ambien) 5 mg HS PRN PO 10/08/17 13:30 (Albuterol Neb) 2.5 mg Q4HR NEB PRN NEB 10/08/17 13:30 (Jessica-Colace) 1 tab BID PO 10/08/17 21:00 10/09/17 08:45 (Milk Of Magnesia Liq) 30 ml Q12H PRN PO 10/08/17 13:30 (Senokot) 17.2 mg Q12H PRN PO 10/08/17 13:30 (Dulcolax Supp) 10 mg DAILY PRN RECTAL 10/08/17 13:30 (Lactulose Liq) 30 ml DAILY PO 10/09/17 09:00 10/09/17 09:00 (Percocet 10-325 Mg) 1 tab Q4H PRN PO 10/08/17 13:30 10/09/17 02:59 (Percocet 10-325 Mg) 2 tab Q4H PRN PO 10/08/17 13:30 (Narcan Inj) 0.4 mg UNSCH PRN IV PUSH 10/08/17 13:30 (Benadryl Inj) 25 mg Q6H PRN IV PUSH 10/08/17 13:30 (Morphine 1 Mg/ ml CUFF MATCHER) 30 mg UNSCH IV 10/08/17 13:30 10/08/17 16:18 CUFF MATCHER Dosage Infused (Pha) 1 Q8HR .XX 10/08/17 14:00 10/08/17 21:35 Miscellaneous Information ALL NURSING DEPARTME... UNSCH PRN .XX 10/08/17 14:45 10/09/17 14:44 A/P Problem List: (1) Status post laminectomy ICD Code: Z98.890 - Other specified postprocedural states (2) Intractable low back pain ICD Code: M54.5 - Low back pain Assessment and Plan This is a 57-year-old female patient with a known medical history of hypertension, GERD and breast cancer who underwent a lumbar L4-5 transforaminal interbody fusion; L3-4 and L4-5 decompressive laminotomies and microdiscectomy; L4-5 pedicle screw fixation; L4-5 interbody cage placement by Dr. Cedillo. Hospitalist team has been consulted for medical management. Status post laminectomy with fusion by Dr. Cedillo 10/08/17 Management per neurosurgery team. Lumbar brace on when OOB. Change Flexeril from scheduled to prn due to sedation Control pain, morphine CUFF MATCHER for now. Percocet p.o. available per pain scale with bowel regimen Zofran prn nausea Supplemental as to as needed, keep oxygen saturations above 92%. Supportive care. Leukocytosis patient is afebrile CXR 09/24 shows scattered subsegmental atelectasis in the lungs. IS at the bedside, encouraged use. obtain UA, if negative repeat CXR obtain lactic acid continue on IVF repeat CBC in am Hypertension, chronic, controlled Continue home medications including losartan, Cardizem and atenolol. Monitor BP trends and adjust treatment accordingly. GERD Continue home PPI. Right breast cancer, status post right lumpectomy with radiation currently undergoing p.o. chemotherapy: Continue home medications. Supportive care. DVT prophylaxis: Lovenox 40mg sq Regine Tran Oct 09, 2017 12:55
[2017-10-09] MEDS: PCA - TOTAL MG MORPHINE DELIVERED PER SHIFT SCH ×2 (14:00→21:07)
[2017-10-09] MEDS ORDERED: CYCLOBENZAPRINE HCL 10 MG TAB PO PRN (18:00)
[2017-10-10] MEDS: oxyCODONE/ACETAMINOPHEN 10 MG/325 MG TAB PO PRN ×5 (02:45→23:20)
[2017-10-10 05:00] VITALS: BP 126/63; PULSE 103; RESP 18; TEMP 98.9; O2SAT 97
[2017-10-10 05:25] LABS: BILIRUBIN, URINE NEG (NEG); BLOOD, URINE TRACE (NEG); GLUCOSE,URINE NEG (NEG); KETONE, URINE 40 mg/dL (NEG); MUCUS URINE FEW /lpf (OCC); NITRITE,URINE NEG (NEG); PH, URINE 5.5 (5.0-8.5); SQUAMOUS EPITHELIAL CELL URINE 2 /hpf (0-5); TRANSITIONAL EPI CELLS, URINE 1 /hpf; URINE COLOR YELLOW (YELLW/STRAW); URINE LEUKOCYTE ESTERASE NEG (NEG)
[2017-10-10] MEDS: MORPHINE SULFATE 30 MG/30 ML PCA IV SCH (06:17)
[2017-10-10] MEDS: PCA - TOTAL MG MORPHINE DELIVERED PER SHIFT SCH ×3 (06:22→22:00)
[2017-10-10 06:58] LABS: BASOPHIL # 0.1 TH/MM3 (0-0.2); BASOPHIL % 0.5 % (0.0-2.0); EOSINOPHIL % 0.1 % (0.0-4.0); HEMATOCRIT 33.7 % (35.0-46.0); HEMOGLOBIN 11.3 GM/DL (11.6-15.3); LYMPH % 13.7 % (9.0-44.0); LYMPHOCYTE # 1.8 TH/MM3 (1.0-4.8); MEAN CELL VOLUME 84.6 FL (80.0-100.0); MEAN CORPUSCULAR HEMOGLOBIN 28.3 PG (27.0-34.0); MEAN CORPUSCULAR HGB CONC 33.5 % (32.0-36.0); MEAN PLATELET VOLUME 7.6 FL (7.0-11.0); MONO % 9.7 % (0.0-8.0); MONOCYTE # 1.3 TH/MM3 (0-0.9); PLATELET COUNT 244 TH/MM3 (150-450); RED BLOOD COUNT 3.99 MIL/MM3 (4.00-5.30); RED CELL DISTRIBUTION WIDTH 15.1 % (11.6-17.2); WHITE BLOOD COUNT 13.2 TH/MM3 (4.0-11.0)
[2017-10-10 07:09] LABS: PHOSPHORUS 2.3 MG/DL (2.5-4.9)
[2017-10-10 08:00] VITALS: BP 127/75; PULSE 122; RESP 19; TEMP 101; O2SAT 93
[2017-10-10] MEDS: MULTIVITAMINS/MINERALS THERAPEUTIC TAB PO SCH (08:03)
[2017-10-10] MEDS: LACTULOSE SYRUP 20 GM/30 ML CUP PO SCH (08:03)
[2017-10-10] MEDS: ATENOLOL 25 MG TAB PO SCH (08:03)
[2017-10-10] MEDS: PANTOPRAZOLE SOD 20 MG DELAYED RELEASE TAB PO SCH ×2 (08:03→20:01)
[2017-10-10] MEDS: LOSARTAN 50 MG TAB PO SCH (08:03)
[2017-10-10] MEDS: DILTIAZEM-CD 240 MG CAP ER PO SCH (08:03)
[2017-10-10] MEDS: DOCUSATE SODIUM 50 MG/SENNA 8.6 MG TAB PO SCH ×2 (08:04→20:04)
[2017-10-10] MEDS: METOCLOPRAMIDE HCL 10 MG/2 ML VIAL IVS SCH ×3 (08:04→23:20)
[2017-10-10] MEDS: SODIUM CHLORIDE 0.9% FLUSH 10 ML FLUSH IV FLUSH SCH ×2 (09:00→20:05)
[2017-10-10] MEDS: ALUMINUM/MAGNESIUM/SIMETH 30 ML CUP PO PRN ×2 (11:21→20:06)
[2017-10-10 12:00] VITALS: BP 124/60; PULSE 92; RESP 18; TEMP 98.8; O2SAT 94
--- NOTE | 2017-10-10 13:46 | HHI.PR ---
Subjective Remarks This is a 57-year-old female patient with a known medical history of hypertension, GERD and breast cancer who underwent a lumbar L4-5 transforaminal interbody fusion; L3-4 and L4-5 decompressive laminotomies and microdiscectomy; L4-5 pedicle screw fixation; L4-5 interbody cage placement today by Dr. Cedillo. Hospitalist team has been consulted for medical management. Patient is seen and examined in room status post surgery, lethargic but awakens to voice. Rather poor historian at this time. Family at bedside assisting with history. There are no medical records for review at this time. Supposedly patient has been following with Dr. Cedillo in the outpatient setting for chronic back pain. Denies any recent fever, chills, cough, abdominal pain, nausea, vomiting, diarrhea or dysuria. Hypertension has been controlled with Cardizem, atenolol and losartan at home. Supposedly patient has been undergoing treatment for breast cancer with history of right breast lumpectomy with radiation, currently on p.o. chemotherapy. Oncologist is Dr. Monsivais from [facility]. PCP is Dr. Jorgensen. 3-16 Follow-up on patient status post lumbar laminectomy and fusion L3 to L5. Patient seen and examined. Patient complains of significant pain. She is somnolent and repetitively falls asleep during questioning however she awakes easily and answers questions appropriately. She complains of nausea. She's been unable to tolerate diet. She denies any fever or chills. Denies any chest pain or shortness of breath. She denies any vomiting or abdominal pain. She is afebrile. VSS. 3-17 said some issues with some GERD Make sure she is on something for this Continue physical therapy and Occupational Therapy. A.m. labs discussed with patient and RN And case management Objective Vitals Vital Signs Date Time Temp Pulse Resp B/P (MAP) Pulse Ox O2 Delivery O2 Flow Rate FiO2 10/10/17 12:00 98.8 92 18 124/60 (81) 94 10/10/17 08:00 101.0 122 19 127/75 (92) 93 10/10/17 06:22 18 10/10/17 06:17 18 10/10/17 05:00 98.9 103 18 126/63 (84) 97 10/09/17 23:56 97.4 103 18 126/60 (82) 92 10/09/17 21:15 97 Nasal Cannula 3.00 10/09/17 21:07 19 10/09/17 20:05 97.4 74 17 122/77 (92) 97 10/09/17 16:00 99.9 109 18 137/72 (93) 95 I/O 10/09/17 10/09/17 10/09/17 10/10/17 10/10/17 10/10/17 07:00 15:00 23:00 07:00 15:00 23:00 Intake Total 360 ml 480 ml 240 ml Output Total 650 ml Balance -290 ml 480 ml 240 ml Intake Oral 360 ml 480 ml 240 ml Output Urine Total 650 ml # Voids 6 2 # Bowel Movements 0 0 0 Result Diagram: 10/10/17 0623 10/09/17 1117 Other Results Laboratory Tests Test 10/08/17 13:53 10/09/17 11:17 10/09/17 19:33 10/10/17 05:00 White Blood Count 4.9 TH/MM3 12.2 TH/MM3 Red Blood Count 4.03 MIL/MM3 4.21 MIL/MM3 Hemoglobin 11.4 GM/DL 11.9 GM/DL Hematocrit 34.1 % 36.0 % Mean Corpuscular Volume 84.8 FL 85.5 FL Mean Corpuscular Hemoglobin 28.3 PG 28.2 PG Mean Corpuscular Hemoglobin Concent 33.4 % 33.0 % Red Cell Distribution Width 14.7 % 15.1 % Platelet Count 245 TH/MM3 251 TH/MM3 Mean Platelet Volume 7.4 FL 7.7 FL Neutrophils (%) (Auto) 50.0 % 81.1 % Lymphocytes (%) (Auto) 40.9 % 10.5 % Monocytes (%) (Auto) 7.1 % 7.9 % Eosinophils (%) (Auto) 1.3 % 0.1 % Basophils (%) (Auto) 0.7 % 0.4 % Neutrophils # (Auto) 2.5 TH/MM3 9.9 TH/MM3 Lymphocytes # (Auto) 2.0 TH/MM3 1.3 TH/MM3 Monocytes # (Auto) 0.4 TH/MM3 1.0 TH/MM3 Eosinophils # (Auto) 0.1 TH/MM3 0.0 TH/MM3 Basophils # (Auto) 0.0 TH/MM3 0.0 TH/MM3 CBC Comment DIFF FINAL AUTO DIFF Differential Comment AUTO DIFF CONFIRMED Blood Urea Nitrogen 8 MG/DL 7 MG/DL Creatinine 0.47 MG/DL 0.63 MG/DL Random Glucose 105 MG/DL 96 MG/DL Total Protein 5.7 GM/DL Calcium Level 8.0 MG/DL 8.5 MG/DL Magnesium Level 2.0 MG/DL Sodium Level 147 MEQ/L 138 MEQ/L Potassium Level 3.5 MEQ/L 3.6 MEQ/L Chloride Level 110 MEQ/L 105 MEQ/L Carbon Dioxide Level 28.3 MEQ/L 26.0 MEQ/L Anion Gap 9 MEQ/L 7 MEQ/L Estimat Glomerular Filtration Rate 136 ML/MIN 97 ML/MIN Protein Corrected Calcium 8.8 MG/DL Lactic Acid Level 0.8 mmol/L Urine Color YELLOW Urine Turbidity CLEAR Urine pH 5.5 Urine Specific [place] 1.018 Urine Protein TRACE mg/dL Urine Glucose (UA) NEG mg/dL Urine Ketones 40 mg/dL Urine Occult Blood TRACE Urine Nitrite NEG Urine Bilirubin NEG Urine Urobilinogen LESS THAN 2.0 MG/DL Urine Leukocyte Esterase NEG Urine RBC 4 /hpf Urine WBC 2 /hpf Urine Squamous Epithelial Cells 2 /hpf Urine Transitional Epithelial Cells 1 /hpf Urine Mucus FEW /lpf Microscopic Urinalysis Comment CULT NOT INDICATED Test 10/10/17 06:23 White Blood Count 13.2 TH/MM3 Red Blood Count 3.99 MIL/MM3 Hemoglobin 11.3 GM/DL Hematocrit 33.7 % Mean Corpuscular Volume 84.6 FL Mean Corpuscular Hemoglobin 28.3 PG Mean Corpuscular Hemoglobin Concent 33.5 % Red Cell Distribution Width 15.1 % Platelet Count 244 TH/MM3 Mean Platelet Volume 7.6 FL Neutrophils (%) (Auto) 76.0 % Lymphocytes (%) (Auto) 13.7 % Monocytes (%) (Auto) 9.7 % Eosinophils (%) (Auto) 0.1 % Basophils (%) (Auto) 0.5 % Neutrophils # (Auto) 10.0 TH/MM3 Lymphocytes # (Auto) 1.8 TH/MM3 Monocytes # (Auto) 1.3 TH/MM3 Eosinophils # (Auto) 0.0 TH/MM3 Basophils # (Auto) 0.1 TH/MM3 CBC Comment DIFF FINAL Differential Comment Phosphorus Level 2.3 MG/DL Magnesium Level 2.0 MG/DL Imaging Last Impressions Lumbar Spine X-Ray 10/08/17 0000 Signed Impressions: Service Date/Time: September 09:13 - CONCLUSION: 1. Surgical hardware in excellent position. 2. Good alignment of the lumbar spine. Armond Sultana MD Chest X-Ray 10/08/17 0000 Signed Impressions: Service Date/Time: September 13:43 - CONCLUSION: 1. Left central line in superior vena cava without pneumothorax. Scattered subsegmental atelectasis in the lungs. Baldomero Pelayo MD Objective Remarks GENERAL: Well-nourished, well-developed female patient in [place]. Awake alert oriented 3 talkative and cooperative SKIN: Warm and dry. No rash. HEAD: Normocephalic. Atraumatic. EYES: EOMI. No scleral icterus. No injection or drainage. ENT: No nasal bleeding or discharge. Mucous membranes pink and moist. NECK: Trachea midline. Supple no JVD CARDIOVASCULAR: Regular rate and rhythm S1, S2 noted. No S3 or S4 no murmur appreciated. RESPIRATORY: Nonlabored. Clear to auscultation. Breath sounds equal bilaterally. Decreased breath sounds bilaterally GASTROINTESTINAL: Abdomen soft, non-tender, nondistended. Hypoactive bowel sounds x4. MUSCULOSKELETAL: No obvious deformities. Extremities without clubbing, cyanosis , or edema. NEUROLOGICAL: Awake and alert. No obvious cranial nerve deficits. Able to move all extremities spontaneously. No focal neurologic findings appreciated. Normal speech. PSYCHIATRIC: Appropriate mood and affect; insight and judgment normal. Procedures s/p Lumbar L4-5 transforaminal interbody fusion; L3-4 and L4-5 decompressive laminotomies and microdiscectomy; L4-5 pedicle screw fixation; L4-5 interbody cage placement on 10/08/17 Medications and IVs Current Medications Lactated Ringer's 1,000 ml @ 30 mls/hr Q24H PRN IV SEE LABEL COMMENTS Last administered on 10/08/17at 07:15; Start 10/08/17 at 06:30; Stop 10/08/17 at 13:35 ; Status DC Sodium Chloride 500 ml @ 30 mls/hr [id number] PRN IV SEE LABEL COMMENTS; Start at 06:30; Stop 10/08/17 at 13:35; Status DC Metoprolol Tartrate (Lopressor) 25 mg CASINO FLOORPERSON PRN PO SEE LABEL COMMENTS; Start 10/08/17 at 06:30; Stop 10/11/17 at 06:29 Chlorhexidine Gluconate (Chlorhexidine 2% Cloth) 3 pack CASINO FLOORPERSON PRN TOPICAL SEE LABEL COMMENTS Last administered on 10/08/17 07:00; Start 10/08/17 at 06:30 ; Stop 10/11/17 at 06:29 Vancomycin HCl 1000 mg/Sodium Chloride 250 ml @ 250 mls/hr CASINO FLOORPERSON IV Last administered on 10/08/17at 10:50; Start 10/08/17 at 06:30; Stop 10/11/17 at 06:29 Sodium Chloride 1,000 ml @ 30 mls/hr Q24H IV ; Start 10/08/17 at 06:30; Stop at 13:35; Status DC Thrombin (Thrombin Top Soln) 10,000 units STK-MED ONCE .ROUTE Last administered on 10/08/17 09:50; Start 10/08/17 at 07:03; Stop 10/08/17 at 07:04 ; Status DC Bupivacaine HCl/ Epinephrine Bitart (Sensorcaine-Epinephrine Pf 0.5% Inj) 30 ml STK-MED ONCE .ROUTE Last administered on 10/08/17at 09:45; Start 10/08/17 at 07: 03; Stop 10/08/17 at 07:04; Status DC Vancomycin HCl (Vancomycin Inj) 2,000 mg STK-MED ONCE .ROUTE Last administered on 10/08/17 09:45; Start 10/08/17 at 07:03; Stop 10/08/17 at 07:04; Status DC Gelatin (Gelfoam 100 Top) 1 foam STK-MED ONCE .ROUTE Last administered on 09:50; Start 10/08/17 at 07:03; Stop 10/08/17 at 07:04; Status DC Vancomycin/Sodium Chloride 200 ml @ As Directed STK-MED ONCE IV Last administered on 10/08/17at 12:00; Start 10/08/17 at 07:30; Stop 10/08/17 at 07:31 ; Status DC Acetaminophen 100 ml @ As Directed STK-MED ONCE IV ; Start 10/08/17 at 08:16; Stop 10/08/17 at 08:17; Status DC Metronidazole 100 ml @ As Directed STK-MED ONCE IV Last administered on at 09:25; Start 10/08/17 at 08:52; Stop 10/08/17 at 08:53; Status DC Thrombin (Thrombin Top Soln) 10,000 units STK-MED ONCE .ROUTE Last administered on 10/08/17at 12:00; Start 10/08/17 at 11:59; Stop 10/08/17 at 12:00 ; Status DC Gelatin (Gelfoam 100 Top) 1 foam STK-MED ONCE .ROUTE Last administered on at 12:00; Start 10/08/17 at 11:59; Stop 10/08/17 at 12:00; Status DC Atenolol (Tenormin) 25 mg DAILY PO Last administered on 10/10/17at 08:03; Start 10/09/17 at 09:00 Diltiazem HCl (Cardizem Cd) 240 mg DAILY PO Last administered on 10/10/17at 08: 03; Start 10/09/17 at 09:00 Losartan Potassium (Cozaar) 50 mg DAILY PO Last administered on 10/10/17at 08:03 ; Start 10/09/17 at 09:00 Promethazine HCl (Phenergan) 25 mg Q6H PRN PO NAUSEA OR VOMITING; Start at 13:30; Stop 10/08/17 at 13:35; Status DC Non-Formulary Medication 1 tab TID PRN PO GAS RETENTION; Start 10/08/17 at 13: 30; Stop 10/08/17 at 16:38; Status DC Multivitamins/ Minerals Therapeutic (Theragran M Tab) 1 tab DAILY PO Last administered on 10/10/17at 08:03; Start 10/09/17 at 09:00 Pantoprazole Sodium (Protonix) 20 mg BID PO Last administered on 10/10/17at 08: 03; Start 10/08/17 at 21:00 Patient Own Medication PT OWN MED: Toremif... DAILY PO ; Start 10/09/17 at 09:00 ; Status Future Hold Potassium Chloride/Sodium Chloride 1,000 ml @ 100 mls/hr Q10H IV Last administered on 10/09/17at 19:55; Start 10/08/17 at 16:00 Sodium Chloride (NS Flush) 2 ml UNSCH PRN IV FLUSH FLUSH AFTER USING IV ACCESS Last administered on 10/09/17at 00:28; Start 10/08/17 at 13:30 Sodium Chloride (NS Flush) 2 ml BID IV FLUSH Last administered on 10/09/17at 19: 57; Start 10/08/17 at 21:00 Cefazolin Sodium 1000 mg/Sodium Chloride 100 ml @ 200 mls/hr Q8H IV Last administered on 10/09/17at 08:44; Start 10/08/17 at 17:00; Stop 10/09/17 at 09:29 ; Status DC Al Hydrox/Mg Hydrox/Simethicone (Mag-Al Plus Susp Liq) 30 ml Q6H PRN PO DYSPEPSIA Last administered on 10/10/17at 11:21; Start 10/08/17 at 13:30 Metoclopramide HCl (Reglan Inj) 10 mg Q8H IVS Last administered on 10/10/17at 08 :04; Start 10/08/17 at 17:00 Ondansetron HCl (Zofran Inj) 4 mg Q6H PRN IV PUSH NAUSEA OR VOMITING Last administered on 10/08/17at 18:13; Start 10/08/17 at 13:30 Promethazine HCl (Phenergan Inj) 25 mg Q4H PRN IM NAUSEA Last administered on at 21:37; Start 10/08/17 at 13:30 Calcium Gluconate 1 gm/Sodium Chloride 110 ml @ 110 mls/hr UNSCH PRN IV SEE LABEL COMMENTS; Start 10/08/17 at 13:30 Potassium Chloride 100 ml @ 50 mls/hr UNSCH PRN IV POTASSIUM LESS THAN 4 Last administered on 10/08/17at 16:15; Start 10/08/17 at 13:30 Magnesium Sulfate 2 gm/Sodium Chloride 104 ml @ 100 mls/hr UNSCH PRN IV MAGNESIUM LESS THAN 2; Start 10/08/17 at 13:30 Cyclobenzaprine HCl (Flexeril) 10 mg Q8H PO Last administered on 10/09/17at 10: 00; Start 10/08/17 at 18:00; Stop 10/09/17 at 16:44; Status DC Clonidine (Catapres) 0.1 mg Q6H PRN PO SYS BP GREATER THAN 170 MMHG; Start at 13:30 Acetaminophen (Tylenol) 650 mg Q4H PRN PO TEMPERATURE > 101.5 F; Start at 13:30 Menthol (Cut Off Dar) 1 lozenge UNSCH PRN BUCCAL SORE THROAT; Start 10/08/17 at 13:30 Zolpidem Tartrate (Ambien) 5 mg HS PRN PO INSOMNIA; Start 10/08/17 at 13:30 Albuterol Sulfate (Albuterol Neb) 2.5 mg Q4HR NEB PRN NEB WHEEZING; Start 10/08 at 13:30 Senna/Docusate Sodium (Jessica-Colace) 1 tab BID PO Last administered on at 08:04; Start 10/08/17 at 21:00 Magnesium Hydroxide (Milk Of Magnesia Liq) 30 ml Q12H PRN PO Mild constipation ; Start 10/08/17 at 13:30 Sennosides (Senokot) 17.2 mg Q12H PRN PO Moderate constipation; Start 10/08/17 at 13:30 Bisacodyl (Dulcolax Supp) 10 mg DAILY PRN RECTAL SEVERE CONSITIPATION; Start at 13:30 Lactulose (Lactulose Liq) 30 ml DAILY PO Last administered on 10/10/17at 08:03; Start 10/09/17 at 09:00 Oxycodone/ Acetaminophen (Percocet 10-325 Mg) 1 tab Q4H PRN PO pain1-6 Last administered on 10/10/17at 08:04; Start 10/08/17 at 13:30 Oxycodone/ Acetaminophen (Percocet 10-325 Mg) 2 tab Q4H PRN PO pain>6; Start at 13:30 Naloxone HCl (Narcan Inj) 0.4 mg UNSCH PRN IV PUSH RESPIRATORY RATE LESS THAN 10; Start 10/08/17 at 13:30 Diphenhydramine HCl (Benadryl Inj) 25 mg Q6H PRN IV PUSH ITCHING; Start at 13:30 Morphine Sulfate (Morphine 1 Mg/ ml GUIDANCE SECRETARY) 30 mg UNSCH IV Last administered on at 06:17; Start 10/08/17 at 13:30 GUIDANCE SECRETARY Dosage Infused (Pha) 1 Q8HR .XX Last administered on 10/10/17at 06:22; Start 10/08/17 at 14:00 Fentanyl Citrate (fentaNYL INJ) 300 mcg STK-MED ONCE .ROUTE ; Start 10/08/17 at 13:41; Stop 10/08/17 at 13:42; Status DC Midazolam HCl (Versed Inj) 2 mg STK-MED ONCE .ROUTE ; Start 10/08/17 at 13:42; Stop 10/08/17 at 13:43; Status DC Morphine Sulfate (*morphine INJ PERIprocedure ONLY) 8 mg STK-MED ONCE .ROUTE Last administered on 10/08/17at 13:44; Start 10/08/17 at 13:44; Stop 10/08/17 at 13:45; Status DC Ondansetron HCl (*ZOFRAN INJ PERIprocedural ONLY) 4 mg STK-MED ONCE .ROUTE Last administered on 10/08/17at 13:45; Start 10/08/17 at 13:45; Stop 10/08/17 at 13:46; Status DC Morphine Sulfate (*morphine INJ PERIprocedure ONLY) 8 mg STK-MED ONCE .ROUTE Last administered on 10/08/17at 14:25; Start 10/08/17 at 14:25; Stop 10/08/17 at 14:26; Status DC Miscellaneous Information ALL NURSING DEPARTME... UNSCH PRN .XX SEE LABEL COMMENTS; Start 10/08/17 at 14:45; Stop 10/09/17 at 14:44; Status DC Pantoprazole Sodium (Protonix) 20 mg ONCE ONCE PO Last administered on at 18:13; Start 10/08/17 at 18:00; Stop 10/08/17 at 18:01; Status DC Pneumococcal Polyvalent Vaccine (Pneumovax-23 Inj) 25 mcg ONCE ONCE IM ; Start 10/09/17 at 09:00; Stop 10/09/17 at 09:01; Status Cancel Fluconazole (Diflucan) 150 mg ONCE ONCE PO Last administered on 10/09/17at 09: 45; Start 10/09/17 at 09:45; Stop 10/09/17 at 09:46; Status DC Enoxaparin Sodium (Lovenox Inj) 40 mg Q24H SQ ; Start 10/10/17 at 21:00 Cyclobenzaprine HCl (Flexeril) 10 mg Q8H PRN PO Spasms; Start 10/09/17 at 18:00 A/P Problem List: (1) Status post laminectomy ICD Code: Z98.890 - Other specified postprocedural states (2) Intractable low back pain ICD Code: M54.5 - Low back pain Assessment and Plan This is a 57-year-old female patient with a known medical history of hypertension, GERD and breast cancer who underwent a lumbar L4-5 transforaminal interbody fusion; L3-4 and L4-5 decompressive laminotomies and microdiscectomy; L4-5 pedicle screw fixation; L4-5 interbody cage placement by Dr. Cedillo. Hospitalist team has been consulted for medical management. Status post laminectomy with fusion by Dr. Cedillo 10/08/17 Management per neurosurgery team. Lumbar brace on when OOB. Change Flexeril from scheduled to prn due to sedation Control pain, morphine GUIDANCE SECRETARY for now. Percocet p.o. available per pain scale with bowel regimen Zofran prn nausea Supplemental as to as needed, keep oxygen saturations above 92%. Supportive care. Leukocytosis patient is afebrile CXR 09/24 shows scattered subsegmental atelectasis in the lungs. IS at the bedside, encouraged use. obtain UA, if negative repeat CXR obtain lactic acid continue on IVF repeat CBC in am Hypertension, chronic, controlled Continue home medications including losartan, Cardizem and atenolol. Monitor BP trends and adjust treatment accordingly. GERD Continue home PPI. Right breast cancer, status post right lumpectomy with radiation currently undergoing p.o. chemotherapy: Continue home medications. Supportive care. DVT prophylaxis: Lovenox 40mg sq Discharge Planning Continue physical therapy and occupational therapy Once cleared by neurosurgery Hill Mckee DO Oct 10, 2017 13:46
[2017-10-10 16:00] VITALS: BP 112/66; PULSE 95; RESP 18; TEMP 99.7; O2SAT 94
[2017-10-10] MEDS ORDERED: PADIMATE (CHAPSTICK) 4.5 GM TUBE TOPICAL PRN (16:45)
--- NOTE | 2017-10-10 17:10 | HHI.NSPN ---
History Chief Complaint: Incisional pain Interval History 57-year-old lady who is now postoperative day #2 status post L3-5 laminotomy with L4-5 transforaminal interbody fusion. Relates that incisional and leg pain is improving. Complains of nausea and constipation although positive flatus. Continues to use GLUING MACHINE ADJUSTER along with the when necessary Lortab and Flexeril. Ambulated a few steps with the physical therapy today. Exam Results Vital Signs Date Time Temp Pulse Resp B/P (MAP) Pulse Ox O2 Delivery O2 Flow Rate FiO2 10/10/17 12:00 98.8 92 18 124/60 (81) 94 10/09/17 21:15 Nasal Cannula 3.00 Intake and Output 10/10/17 10/10/17 10/11/17 08:00 16:00 00:00 Intake Total 240 ml Balance 240 ml Physical Examination General: Pt resting in bed interacting with family members at bedside. Resp: CTA bilaterally Heart: NSR no murmurs Abd: Soft positive bs Skin: No cyanosis or erythema. Pt currently to painful to role. Incision clean and dry. Muscle: Moves LEs with an cooperating with exam better today. No calf tenderness to palpation bilaterally. Neuro: Pt awake and alert. Follows commands well. Speech clear and appropriate. Lab, Micro, Other Results Laboratory Tests Test 10/09/17 19:33 10/10/17 05:00 10/10/17 06:23 Lactic Acid Level 0.8 Urine Color YELLOW Urine Turbidity CLEAR Urine pH 5.5 Urine Specific [place] 1.018 Urine Protein TRACE Urine Glucose (UA) NEG Urine Ketones 40 Urine Occult Blood TRACE Urine Nitrite NEG Urine Bilirubin NEG Urine Urobilinogen LESS THAN 2.0 Urine Leukocyte Esterase NEG Urine RBC 4 Urine WBC 2 Urine Squamous Epithelial Cells 2 Urine Transitional Epithelial Cells 1 Urine Mucus FEW Microscopic Urinalysis Comment CULT NOT INDICATED White Blood Count 13.2 Red Blood Count 3.99 Hemoglobin 11.3 Hematocrit 33.7 Mean Corpuscular Volume 84.6 Mean Corpuscular Hemoglobin 28.3 Mean Corpuscular Hemoglobin Concent 33.5 Red Cell Distribution Width 15.1 Platelet Count 244 Mean Platelet Volume 7.6 Neutrophils (%) (Auto) 76.0 Lymphocytes (%) (Auto) 13.7 Monocytes (%) (Auto) 9.7 Eosinophils (%) (Auto) 0.1 Basophils (%) (Auto) 0.5 Neutrophils # (Auto) 10.0 Lymphocytes # (Auto) 1.8 Monocytes # (Auto) 1.3 Eosinophils # (Auto) 0.0 Basophils # (Auto) 0.1 CBC Comment DIFF FINAL Differential Comment Phosphorus Level 2.3 Magnesium Level 2.0 Medical Decision Making Impression and Plan Postoperative day #2 status post L4-5 PLIF and L3-5 laminectomy. Overall pain is improving and we'll continue with GLUING MACHINE ADJUSTER and IV fluids for another day. Mechanical and chemical DVT prophylaxis. Low-grade fever last night which has resolved. Encourage incentive spirometry to prevent atelectasis. Plan inpatient rehabilitation placement early next week. Koko Cedillo MD Oct 10, 2017 17:10
[2017-10-10] MEDS: NS + KCL 20 MEQ INJ 1,000 ML IV SCH ×2 (18:00→20:07)
[2017-10-10 20:00] VITALS: BP 120/68; PULSE 98; RESP 18; TEMP 99.7; O2SAT 99
[2017-10-10] MEDS: ENOXAPARIN SODIUM 40 MG/0.4 ML SYRINGE SQ SCH (20:05)
[2017-10-11] VITALS (7 sets, daily range): BP systolic 106–144; BP diastolic 66–74; PULSE 84–102; RESP 18–20; TEMP 96.3–100.1; O2SAT 93–97
[2017-10-11] MEDS: oxyCODONE/ACETAMINOPHEN 10 MG/325 MG TAB PO PRN ×3 (04:25→14:51)
[2017-10-11] MEDS: PCA - TOTAL MG MORPHINE DELIVERED PER SHIFT SCH (06:00)
[2017-10-11 07:17] LABS: ALBUMIN 2.4 GM/DL (3.4-5.0); AST (GOT) 26 U/L (15-37); BICARBONATE 26.3 MEQ/L (21.0-32.0); BLOOD UREA NITROGEN 10 MG/DL (7-18); CALCIUM 8.5 MG/DL (8.5-10.1); CHLORIDE 103 MEQ/L (98-107); CREATININE 0.58 MG/DL (0.50-1.00); GLOMERULAR FILTRATION RATE 107 ML/MIN (>89); GLUCOSE,RANDOM 115 MG/DL (74-106); MAGNESIUM 2.3 MG/DL (1.5-2.5); SODIUM (NA) 137 MEQ/L (136-145)
[2017-10-11 07:18] LABS: ALT (GPT) 30 U/L (10-53); PHOSPHORUS 1.6 MG/DL (2.5-4.9)
[2017-10-11 07:27] LABS: ALKALINE PHOSPHATASE 81 U/L (45-117); BASOPHIL # 0.1 TH/MM3 (0-0.2); BASOPHIL % 0.8 % (0.0-2.0); EOSINOPHIL # 0.1 TH/MM3 (0-0.4); EOSINOPHIL % 0.6 % (0.0-4.0); FREE T4 1.18 NG/DL (0.76-1.46); HEMATOCRIT 32.2 % (35.0-46.0); HEMOGLOBIN 10.8 GM/DL (11.6-15.3); LYMPH % 19.1 % (9.0-44.0); LYMPHOCYTE # 1.9 TH/MM3 (1.0-4.8); MEAN CELL VOLUME 85.7 FL (80.0-100.0); MEAN CORPUSCULAR HEMOGLOBIN 28.7 PG (27.0-34.0); MEAN CORPUSCULAR HGB CONC 33.5 % (32.0-36.0); MEAN PLATELET VOLUME 7.9 FL (7.0-11.0); MONO % 8.5 % (0.0-8.0); MONOCYTE # 0.8 TH/MM3 (0-0.9); PLATELET COUNT 269 TH/MM3 (150-450); RED BLOOD COUNT 3.76 MIL/MM3 (4.00-5.30); RED CELL DISTRIBUTION WIDTH 15.1 % (11.6-17.2); TOTAL BILIRUBIN ADULT 0.4 MG/DL (0.2-1.0); TOTAL PROTEIN 6.3 GM/DL (6.4-8.2); WHITE BLOOD COUNT 9.8 TH/MM3 (4.0-11.0)
[2017-10-11] MEDS ORDERED: MORPHINE SULFATE 4 MG/ML INJ IV PUSH PRN (08:45)
[2017-10-11] MEDS: ALUMINUM/MAGNESIUM/SIMETH 30 ML CUP PO PRN ×2 (08:51→18:03)
[2017-10-11] MEDS: LOSARTAN 50 MG TAB PO SCH (08:52)
[2017-10-11] MEDS: LACTULOSE SYRUP 20 GM/30 ML CUP PO SCH (08:52)
[2017-10-11] MEDS: DOCUSATE SODIUM 50 MG/SENNA 8.6 MG TAB PO SCH ×2 (08:52→19:43)
[2017-10-11] MEDS: PANTOPRAZOLE SOD 20 MG DELAYED RELEASE TAB PO SCH ×2 (08:52→19:42)
[2017-10-11] MEDS: DILTIAZEM-CD 240 MG CAP ER PO SCH (08:52)
[2017-10-11] MEDS: MULTIVITAMINS/MINERALS THERAPEUTIC TAB PO SCH (08:52)
[2017-10-11] MEDS: METOCLOPRAMIDE HCL 10 MG/2 ML VIAL IVS SCH ×2 (08:52→17:49)
[2017-10-11] MEDS: ATENOLOL 25 MG TAB PO SCH (09:00)
[2017-10-11 09:50] LABS: HEMOGLOBIN A1C 5.9 % (4.3-6.0)
--- NOTE | 2017-10-11 10:25 | HHI.PR ---
Subjective Remarks This is a 57-year-old female patient with a known medical history of hypertension, GERD and breast cancer who underwent a lumbar L4-5 transforaminal interbody fusion; L3-4 and L4-5 decompressive laminotomies and microdiscectomy; L4-5 pedicle screw fixation; L4-5 interbody cage placement today by Dr. Cedillo. Hospitalist team has been consulted for medical management. Patient is seen and examined in room status post surgery, lethargic but awakens to voice. Rather poor historian at this time. Family at bedside assisting with history. There are no medical records for review at this time. Supposedly patient has been following with Dr. Cedillo in the outpatient setting for chronic back pain. Denies any recent fever, chills, cough, abdominal pain, nausea, vomiting, diarrhea or dysuria. Hypertension has been controlled with Cardizem, atenolol and losartan at home. Supposedly patient has been undergoing treatment for breast cancer with history of right breast lumpectomy with radiation, currently on p.o. chemotherapy. Oncologist is Dr. Monsivais from [facility]. PCP is Dr. Jorgensen. 3-16 Follow-up on patient status post lumbar laminectomy and fusion L3 to L5. Patient seen and examined. Patient complains of significant pain. She is somnolent and repetitively falls asleep during questioning however she awakes easily and answers questions appropriately. She complains of nausea. She's been unable to tolerate diet. She denies any fever or chills. Denies any chest pain or shortness of breath. She denies any vomiting or abdominal pain. She is afebrile. VSS. 3-17 said some issues with some GERD Make sure she is on something for this Continue physical therapy and Occupational Therapy. A.m. labs discussed with patient and RN And case management 3-18 patient has not had bowel movement yet. We will make sure she has medications to help her have a bowel movement. Patient wants to Mylicon We will get a.m. labs Continue physical therapy and Occupational Therapy Placed on protocols to help her have bowel movements Objective Vitals Vital Signs Date Time Temp Pulse Resp B/P (MAP) Pulse Ox O2 Delivery O2 Flow Rate FiO2 10/11/17 08:00 96.3 100 19 144/74 (97) 96 10/11/17 06:00 15 10/11/17 04:00 100.0 102 18 133/66 (88) 96 10/11/17 00:00 100.1 99 20 124/70 (88) 97 10/10/17 22:00 17 10/10/17 20:00 99.7 98 18 120/68 (85) 99 10/10/17 16:00 99.7 95 18 112/66 (81) 94 10/10/17 12:00 98.8 92 18 124/60 (81) 94 I/O 10/10/17 10/10/17 10/10/17 10/11/17 10/11/17 10/11/17 07:00 15:00 23:00 07:00 15:00 23:00 Intake Total 240 ml 640 ml Output Total 600 ml Balance 240 ml -600 ml 640 ml Intake Oral 240 ml 240 ml IV Total 400 ml Output Urine Total 600 ml # Voids 2 2 9 # Bowel Movements 0 0 Result Diagram: 10/11/17 0615 10/11/17 0615 Other Results Laboratory Tests Test 10/08/17 13:53 10/09/17 11:17 10/09/17 19:33 10/10/17 05:00 White Blood Count 4.9 TH/MM3 12.2 TH/MM3 Red Blood Count 4.03 MIL/MM3 4.21 MIL/MM3 Hemoglobin 11.4 GM/DL 11.9 GM/DL Hematocrit 34.1 % 36.0 % Mean Corpuscular Volume 84.8 FL 85.5 FL Mean Corpuscular Hemoglobin 28.3 PG 28.2 PG Mean Corpuscular Hemoglobin Concent 33.4 % 33.0 % Red Cell Distribution Width 14.7 % 15.1 % Platelet Count 245 TH/MM3 251 TH/MM3 Mean Platelet Volume 7.4 FL 7.7 FL Neutrophils (%) (Auto) 50.0 % 81.1 % Lymphocytes (%) (Auto) 40.9 % 10.5 % Monocytes (%) (Auto) 7.1 % 7.9 % Eosinophils (%) (Auto) 1.3 % 0.1 % Basophils (%) (Auto) 0.7 % 0.4 % Neutrophils # (Auto) 2.5 TH/MM3 9.9 TH/MM3 Lymphocytes # (Auto) 2.0 TH/MM3 1.3 TH/MM3 Monocytes # (Auto) 0.4 TH/MM3 1.0 TH/MM3 Eosinophils # (Auto) 0.1 TH/MM3 0.0 TH/MM3 Basophils # (Auto) 0.0 TH/MM3 0.0 TH/MM3 CBC Comment DIFF FINAL AUTO DIFF Differential Comment AUTO DIFF CONFIRMED Blood Urea Nitrogen 8 MG/DL 7 MG/DL Creatinine 0.47 MG/DL 0.63 MG/DL Random Glucose 105 MG/DL 96 MG/DL Total Protein 5.7 GM/DL Calcium Level 8.0 MG/DL 8.5 MG/DL Magnesium Level 2.0 MG/DL Sodium Level 147 MEQ/L 138 MEQ/L Potassium Level 3.5 MEQ/L 3.6 MEQ/L Chloride Level 110 MEQ/L 105 MEQ/L Carbon Dioxide Level 28.3 MEQ/L 26.0 MEQ/L Anion Gap 9 MEQ/L 7 MEQ/L Estimat Glomerular Filtration Rate 136 ML/MIN 97 ML/MIN Protein Corrected Calcium 8.8 MG/DL Lactic Acid Level 0.8 mmol/L Urine Color YELLOW Urine Turbidity CLEAR Urine pH 5.5 Urine Specific [place] 1.018 Urine Protein TRACE mg/dL Urine Glucose (UA) NEG mg/dL Urine Ketones 40 mg/dL Urine Occult Blood TRACE Urine Nitrite NEG Urine Bilirubin NEG Urine Urobilinogen LESS THAN 2.0 MG/DL Urine Leukocyte Esterase NEG Urine RBC 4 /hpf Urine WBC 2 /hpf Urine Squamous Epithelial Cells 2 /hpf Urine Transitional Epithelial Cells 1 /hpf Urine Mucus FEW /lpf Microscopic Urinalysis Comment CULT NOT INDICATED Test 10/10/17 06:23 10/11/17 06:15 White Blood Count 13.2 TH/MM3 9.8 TH/MM3 Red Blood Count 3.99 MIL/MM3 3.76 MIL/MM3 Hemoglobin 11.3 GM/DL 10.8 GM/DL Hematocrit 33.7 % 32.2 % Mean Corpuscular Volume 84.6 FL 85.7 FL Mean Corpuscular Hemoglobin 28.3 PG 28.7 PG Mean Corpuscular Hemoglobin Concent 33.5 % 33.5 % Red Cell Distribution Width 15.1 % 15.1 % Platelet Count 244 TH/MM3 269 TH/MM3 Mean Platelet Volume 7.6 FL 7.9 FL Neutrophils (%) (Auto) 76.0 % 71.0 % Lymphocytes (%) (Auto) 13.7 % 19.1 % Monocytes (%) (Auto) 9.7 % 8.5 % Eosinophils (%) (Auto) 0.1 % 0.6 % Basophils (%) (Auto) 0.5 % 0.8 % Neutrophils # (Auto) 10.0 TH/MM3 7.0 TH/MM3 Lymphocytes # (Auto) 1.8 TH/MM3 1.9 TH/MM3 Monocytes # (Auto) 1.3 TH/MM3 0.8 TH/MM3 Eosinophils # (Auto) 0.0 TH/MM3 0.1 TH/MM3 Basophils # (Auto) 0.1 TH/MM3 0.1 TH/MM3 CBC Comment DIFF FINAL DIFF FINAL Differential Comment Phosphorus Level 2.3 MG/DL 1.6 MG/DL Magnesium Level 2.0 MG/DL 2.3 MG/DL Blood Urea Nitrogen 10 MG/DL Creatinine 0.58 MG/DL Random Glucose 115 MG/DL Total Protein 6.3 GM/DL Albumin 2.4 GM/DL Calcium Level 8.5 MG/DL Alkaline Phosphatase 81 U/L Aspartate Amino Transf (AST/SGOT) 26 U/L Alanine Aminotransferase (ALT/SGPT) 30 U/L Total Bilirubin 0.4 MG/DL Sodium Level 137 MEQ/L Potassium Level 3.8 MEQ/L Chloride Level 103 MEQ/L Carbon Dioxide Level 26.3 MEQ/L Anion Gap 8 MEQ/L Estimat Glomerular Filtration Rate 107 ML/MIN Free Thyroxine 1.18 NG/DL Thyroid Stimulating Hormone 3rd Gen 0.871 uIU/ML Imaging Last Impressions Lumbar Spine X-Ray 10/08/17 0000 Signed Impressions: Service Date/Time: September 09:13 - CONCLUSION: 1. Surgical hardware in excellent position. 2. Good alignment of the lumbar spine. Armond Sultana MD Chest X-Ray 10/08/17 0000 Signed Impressions: Service Date/Time: September 13:43 - CONCLUSION: 1. Left central line in superior vena cava without pneumothorax. Scattered subsegmental atelectasis in the lungs. Baldomero Pelayo MD Objective Remarks GENERAL: Well-nourished, well-developed female patient in NAD. Awake alert oriented 3 talkative and cooperative SKIN: Warm and dry. No rash. HEAD: Normocephalic. Atraumatic. EYES: EOMI. No scleral icterus. No injection or drainage. ENT: No nasal bleeding or discharge. Mucous membranes pink and moist. NECK: Trachea midline. Supple no JVD CARDIOVASCULAR: Regular rate and rhythm S1, S2 noted. No S3 or S4 no murmur appreciated. RESPIRATORY: Nonlabored. Clear to auscultation. Breath sounds equal bilaterally. Decreased breath sounds bilaterally GASTROINTESTINAL: Abdomen soft, non-tender, nondistended. Hypoactive bowel sounds x4. MUSCULOSKELETAL: No obvious deformities. Extremities without clubbing, cyanosis , or edema. NEUROLOGICAL: Awake and alert. No obvious cranial nerve deficits. Able to move all extremities spontaneously. No focal neurologic findings appreciated. Normal speech. PSYCHIATRIC: Appropriate mood and affect; insight and judgment normal. Procedures s/p Lumbar L4-5 transforaminal interbody fusion; L3-4 and L4-5 decompressive laminotomies and microdiscectomy; L4-5 pedicle screw fixation; L4-5 interbody cage placement on 10/08/17 Medications and IVs Current Medications Lactated Ringer's 1,000 ml @ 30 mls/hr Q24H PRN IV SEE LABEL COMMENTS Last administered on 10/08/17at 07:15; Start 10/08/17 at 06:30; Stop 10/08/17 at 13:35 ; Status DC Sodium Chloride 500 ml @ 30 mls/hr [id number] PRN IV SEE LABEL COMMENTS; Start at 06:30; Stop 10/08/17 at 13:35; Status DC Metoprolol Tartrate (Lopressor) 25 mg TELEPHONE INSTALLER PRN PO SEE LABEL COMMENTS; Start 10/08/17 at 06:30; Stop 10/11/17 at 06:29; Status DC Chlorhexidine Gluconate (Chlorhexidine 2% Cloth) 3 pack TELEPHONE INSTALLER PRN TOPICAL SEE LABEL COMMENTS Last administered on 10/08/17at 07:00; Start 10/08/17 at 06:30 ; Stop 10/11/17 at 06:29; Status DC Vancomycin HCl 1000 mg/Sodium Chloride 250 ml @ 250 mls/hr TELEPHONE INSTALLER IV Last administered on 10/08/17at 10:50; Start 10/08/17 at 06:30; Stop 10/11/17 at 06:29 ; Status DC Sodium Chloride 1,000 ml @ 30 mls/hr Q24H IV ; Start 10/08/17 at 06:30; Stop at 13:35; Status DC Thrombin (Thrombin Top Soln) 10,000 units STK-MED ONCE .ROUTE Last administered on 10/08/17 09:50; Start 10/08/17 at 07:03; Stop 10/08/17 at 07:04 ; Status DC Bupivacaine HCl/ Epinephrine Bitart (Sensorcaine-Epinephrine Pf 0.5% Inj) 30 ml STK-MED ONCE .ROUTE Last administered on 10/08/17 09:45; Start 10/08/17 at 07: 03; Stop 10/08/17 at 07:04; Status DC Vancomycin HCl (Vancomycin Inj) 2,000 mg STK-MED ONCE .ROUTE Last administered on 10/08/17 09:45; Start 10/08/17 at 07:03; Stop 10/08/17 at 07:04; Status DC Gelatin (Gelfoam 100 Top) 1 foam STK-MED ONCE .ROUTE Last administered on 09:50; Start 10/08/17 at 07:03; Stop 10/08/17 at 07:04; Status DC Vancomycin/Sodium Chloride 200 ml @ As Directed STK-MED ONCE IV Last administered on 10/08/17 12:00; Start 10/08/17 at 07:30; Stop 10/08/17 at 07:31 ; Status DC Acetaminophen 100 ml @ As Directed STK-MED ONCE IV ; Start 10/08/17 at 08:16; Stop 10/08/17 at 08:17; Status DC Metronidazole 100 ml @ As Directed STK-MED ONCE IV Last administered on 09:25; Start 10/08/17 at 08:52; Stop 10/08/17 at 08:53; Status DC Thrombin (Thrombin Top Soln) 10,000 units STK-MED ONCE .ROUTE Last administered on 10/08/17 12:00; Start 10/08/17 at 11:59; Stop 10/08/17 at 12:00 ; Status DC Gelatin (Gelfoam 100 Top) 1 foam STK-MED ONCE .ROUTE Last administered on 12:00; Start 10/08/17 at 11:59; Stop 10/08/17 at 12:00; Status DC Atenolol (Tenormin) 25 mg DAILY PO Last administered on 10/10/17at 08:03; Start 10/09/17 at 09:00 Diltiazem HCl (Cardizem Cd) 240 mg DAILY PO Last administered on 10/11/17 08: 52; Start 10/09/17 at 09:00 Losartan Potassium (Cozaar) 50 mg DAILY PO Last administered on 10/11/17at 08:52 ; Start 10/09/17 at 09:00 Promethazine HCl (Phenergan) 25 mg Q6H PRN PO NAUSEA OR VOMITING; Start at 13:30; Stop 10/08/17 at 13:35; Status DC Non-Formulary Medication 1 tab TID PRN PO GAS RETENTION; Start 10/08/17 at 13: 30; Stop 10/08/17 at 16:38; Status DC Multivitamins/ Minerals Therapeutic (Theragran M Tab) 1 tab DAILY PO Last administered on 10/11/17at 08:52; Start 10/09/17 at 09:00 Pantoprazole Sodium (Protonix) 20 mg BID PO Last administered on 10/11/17 08: 52; Start 10/08/17 at 21:00 Patient Own Medication PT OWN MED: Toremif... DAILY PO ; Start 10/09/17 at 09:00 ; Status Future Hold Potassium Chloride/Sodium Chloride 1,000 ml @ 100 mls/hr Q10H IV Last administered on 10/09/17at 19:55; Start 10/08/17 at 16:00; Stop 10/11/17 at 08:46 ; Status DC Sodium Chloride (NS Flush) 2 ml UNSCH PRN IV FLUSH FLUSH AFTER USING IV ACCESS Last administered on 10/09/17at 00:28; Start 10/08/17 at 13:30 Sodium Chloride (NS Flush) 2 ml BID IV FLUSH Last administered on 10/10/17at 20: 05; Start 10/08/17 at 21:00 Cefazolin Sodium 1000 mg/Sodium Chloride 100 ml @ 200 mls/hr Q8H IV Last administered on 10/09/17at 08:44; Start 10/08/17 at 17:00; Stop 10/09/17 at 09:29 ; Status DC Al Hydrox/Mg Hydrox/Simethicone (Mag-Al Plus Susp Liq) 30 ml Q6H PRN PO DYSPEPSIA Last administered on 10/11/17at 08:51; Start 10/08/17 at 13:30 Metoclopramide HCl (Reglan Inj) 10 mg Q8H IVS Last administered on 10/11/17at 08 :52; Start 10/08/17 at 17:00 Ondansetron HCl (Zofran Inj) 4 mg Q6H PRN IV PUSH NAUSEA OR VOMITING Last administered on 10/08/17at 18:13; Start 10/08/17 at 13:30 Promethazine HCl (Phenergan Inj) 25 mg Q4H PRN IM NAUSEA Last administered on at 21:37; Start 10/08/17 at 13:30 Calcium Gluconate 1 gm/Sodium Chloride 110 ml @ 110 mls/hr UNSCH PRN IV SEE LABEL COMMENTS; Start 10/08/17 at 13:30 Potassium Chloride 100 ml @ 50 mls/hr UNSCH PRN IV POTASSIUM LESS THAN 4 Last administered on 10/08/17at 16:15; Start 10/08/17 at 13:30 Magnesium Sulfate 2 gm/Sodium Chloride 104 ml @ 100 mls/hr UNSCH PRN IV MAGNESIUM LESS THAN 2; Start 10/08/17 at 13:30 Cyclobenzaprine HCl (Flexeril) 10 mg Q8H PO Last administered on 10/09/17at 10: 00; Start 10/08/17 at 18:00; Stop 10/09/17 at 16:44; Status DC Clonidine (Catapres) 0.1 mg Q6H PRN PO SYS BP GREATER THAN 170 MMHG; Start at 13:30 Acetaminophen (Tylenol) 650 mg Q4H PRN PO TEMPERATURE > 101.5 F; Start at 13:30 Menthol ([place]) 1 lozenge UNSCH PRN BUCCAL SORE THROAT; Start 10/08/17 at 13:30 Zolpidem Tartrate (Ambien) 5 mg HS PRN PO INSOMNIA; Start 10/08/17 at 13:30 Albuterol Sulfate (Albuterol Neb) 2.5 mg Q4HR NEB PRN NEB WHEEZING; Start 10/08 at 13:30 Senna/Docusate Sodium (Jessica-Colace) 1 tab BID PO Last administered on at 08:52; Start 10/08/17 at 21:00 Magnesium Hydroxide (Milk Of Magnesia Liq) 30 ml Q12H PRN PO Mild constipation ; Start 10/08/17 at 13:30 Sennosides (Senokot) 17.2 mg Q12H PRN PO Moderate constipation; Start 10/08/17 at 13:30 Bisacodyl (Dulcolax Supp) 10 mg DAILY PRN RECTAL SEVERE CONSITIPATION; Start at 13:30 Lactulose (Lactulose Liq) 30 ml DAILY PO Last administered on 10/11/17at 08:52; Start 10/09/17 at 09:00 Oxycodone/ Acetaminophen (Percocet 10-325 Mg) 1 tab Q4H PRN PO pain1-6 Last administered on 10/11/17at 08:53; Start 10/08/17 at 13:30 Oxycodone/ Acetaminophen (Percocet 10-325 Mg) 2 tab Q4H PRN PO pain>6; Start at 13:30 Naloxone HCl (Narcan Inj) 0.4 mg UNSCH PRN IV PUSH RESPIRATORY RATE LESS THAN 10; Start 10/08/17 at 13:30 Diphenhydramine HCl (Benadryl Inj) 25 mg Q6H PRN IV PUSH ITCHING; Start at 13:30 Morphine Sulfate (Morphine 1 Mg/ ml LIVESTOCK COUNTER) 30 mg UNSCH IV Last administered on at 06:17; Start 10/08/17 at 13:30; Stop 10/11/17 at 08:46; Status DC LIVESTOCK COUNTER Dosage Infused (Pha) 1 Q8HR .XX Last administered on 10/11/17at 06:00; Start 10/08/17 at 14:00; Stop 10/11/17 at 08:46; Status DC Fentanyl Citrate (fentaNYL INJ) 300 mcg STK-MED ONCE .ROUTE ; Start 10/08/17 at 13:41; Stop 10/08/17 at 13:42; Status DC Midazolam HCl (Versed Inj) 2 mg STK-MED ONCE .ROUTE ; Start 10/08/17 at 13:42; Stop 10/08/17 at 13:43; Status DC Morphine Sulfate (*morphine INJ PERIprocedure ONLY) 8 mg STK-MED ONCE .ROUTE Last administered on 10/08/17at 13:44; Start 10/08/17 at 13:44; Stop 10/08/17 at 13:45; Status DC Ondansetron HCl (*ZOFRAN INJ PERIprocedural ONLY) 4 mg STK-MED ONCE .ROUTE Last administered on 10/08/17at 13:45; Start 10/08/17 at 13:45; Stop 10/08/17 at 13:46; Status DC Morphine Sulfate (*morphine INJ PERIprocedure ONLY) 8 mg STK-MED ONCE .ROUTE Last administered on 10/08/17at 14:25; Start 10/08/17 at 14:25; Stop 10/08/17 at 14:26; Status DC Miscellaneous Information ALL NURSING DEPARTME... UNSCH PRN .XX SEE LABEL COMMENTS; Start 10/08/17 at 14:45; Stop 10/09/17 at 14:44; Status DC Pantoprazole Sodium (Protonix) 20 mg ONCE ONCE PO Last administered on at 18:13; Start 10/08/17 at 18:00; Stop 10/08/17 at 18:01; Status DC Pneumococcal Polyvalent Vaccine (Pneumovax-23 Inj) 25 mcg ONCE ONCE IM ; Start 10/09/17 at 09:00; Stop 10/09/17 at 09:01; Status Cancel Fluconazole (Diflucan) 150 mg ONCE ONCE PO Last administered on 10/09/17at 09: 45; Start 10/09/17 at 09:45; Stop 10/09/17 at 09:46; Status DC Enoxaparin Sodium (Lovenox Inj) 40 mg Q24H SQ Last administered on 10/10/17at 20 :05; Start 10/10/17 at 21:00 Cyclobenzaprine HCl (Flexeril) 10 mg Q8H PRN PO Spasms; Start 10/09/17 at 18:00 Padimate O ([place]) 1 applic UNSCH PRN TOPICAL CHAPPED LIPS; Start 10/10/17 at 16:45 Ketorolac Tromethamine (Toradol Inj) 30 mg Q6HR IV PUSH ; Start 10/11/17 at 12: 00; Stop 10/12/17 at 11:59 Morphine Sulfate (Morphine Inj) 4 mg Q3H PRN IV PUSH breakthrough pain>6; Start 10/11/17 at 08:45 Simethicone (Mylicon Chew) 80 mg PCHS PRN CHEW GAS RETENTION; Start 10/11/17 at 10:15 A/P Problem List: (1) Status post laminectomy ICD Code: Z98.890 - Other specified postprocedural states (2) Intractable low back pain ICD Code: M54.5 - Low back pain Assessment and Plan This is a 57-year-old female patient with a known medical history of hypertension, GERD and breast cancer who underwent a lumbar L4-5 transforaminal interbody fusion; L3-4 and L4-5 decompressive laminotomies and microdiscectomy; L4-5 pedicle screw fixation; L4-5 interbody cage placement by Dr. Cedillo. Hospitalist team has been consulted for medical management. Status post laminectomy with fusion by Dr. Cedillo 10/08/17 Management per neurosurgery team. Lumbar brace on when OOB. Change Flexeril from scheduled to prn due to sedation Control pain, morphine LIVESTOCK COUNTER for now. Percocet p.o. available per pain scale with bowel regimen Zofran prn nausea Supplemental as to as needed, keep oxygen saturations above 92%. Supportive care. Leukocytosis patient is afebrile CXR 09/24 shows scattered subsegmental atelectasis in the lungs. IS at the bedside, encouraged use. obtain UA, if negative repeat CXR obtain lactic acid continue on IVF repeat CBC in am Hypertension, chronic, controlled Continue home medications including losartan, Cardizem and atenolol. Monitor BP trends and adjust treatment accordingly. GERD Continue home PPI. Right breast cancer, status post right lumpectomy with radiation currently undergoing p.o. chemotherapy: Continue home medications. Supportive care. Constipation was started on medications to help her have bowel movements will also had some Mylicon DVT prophylaxis: Lovenox 40mg sq Discharge Planning Continue physical therapy and occupational therapy Once cleared by neurosurgery Hill Mckee DO Oct 11, 2017 10:24
[2017-10-11] MEDS ORDERED: SODIUM CHLORIDE 0.9% FLUSH 10 ML FLUSH IV FLUSH PRN (10:30)
[2017-10-11] MEDS ORDERED: BISACODYL 10 MG SUPP RECTAL PRN (10:30)
[2017-10-11] MEDS ORDERED: LACTULOSE SYRUP 20 GM/30 ML CUP PO PRN (10:30)
[2017-10-11] MEDS ORDERED: NALOXONE HCL 0.4 MG/ML AMP IV PUSH PRN (10:30)
[2017-10-11] MEDS ORDERED: MAGNESIUM HYDROXIDE SUSP 30 ML CUP PO PRN (10:30)
[2017-10-11] MEDS: BISACODYL EC 5 MG TABEC PO SCH (11:00)
[2017-10-11] MEDS: SIMETHICONE 80 MG CHEWABLE TAB CHEW PRN ×2 (11:08→19:42)
[2017-10-11] MEDS: SENNOSIDES 8.6 MG TAB PO SCH ×2 (11:08→23:00)
[2017-10-11] MEDS: RESP: ALBUTEROL 2.5 MG/3 ML NEB (PRN) NEB ×2 (11:09→23:48)
[2017-10-11] MEDS: KETOROLAC TROMETHAMINE 30 MG/ML (IVP) VIAL IV PUSH SCH ×2 (11:12→18:03)
[2017-10-11] MEDS ORDERED: CYCL10TA PO (14:55)
[2017-10-11] MEDS ORDERED: PERC10TA27 PO (14:55)
--- NOTE | 2017-10-11 14:59 | HHI.NSPN ---
History Chief Complaint: Incisional pain and constipation Interval History 57-year-old lady who is now postoperative day #3 status post L3-5 laminotomy with L4-5 transforaminal interbody fusion. Relates that incisional and leg pain is improving. Complains of constipation although positive flatus. Ambulated around the room with nursing staff and was able to get to the bathroom to urinate. Overall relates that incisional back pain and lower extremity symptoms are improving. Review of Systems General: Negative for: fever, chills, insomnia Respiratory: Negative for: shortness of breath, cough, sputum Cardiovascular: Negative for: chest pain, palpitations, orthopnea Gastrointestinal: Positive for: constipation, Negative for: nausea, vomitting, diarrhea Genitourinary: Negative for: urinary burning, urinary frequency, urinary urgency Exam Results Vital Signs Date Time Temp Pulse Resp B/P (MAP) Pulse Ox O2 Delivery O2 Flow Rate FiO2 10/11/17 12:00 98.6 91 18 111/69 (83) 95 10/09/17 21:15 Nasal Cannula 3.00 Intake and Output 10/11/17 10/11/17 10/12/17 08:00 16:00 00:00 Intake Total 640 ml Balance 640 ml Physical Examination General: Pt resting in bed interacting with family members at bedside. Resp: CTA bilaterally Heart: NSR no murmurs Abd: Soft positive bs Skin: No cyanosis or erythema. Pt currently to painful to role. Incision clean and dry. Muscle: Moves LEs with an cooperating with exam better today. No calf tenderness to palpation bilaterally. Neuro: Pt awake and alert. Follows commands well. Speech clear and appropriate. Medical Decision Making Impression and Plan Postoperative day #3 status post L4-5 PLIF and L3-5 laminectomy. Overall pain is improving and we will discontinue GAS ENGINE REPAIRER and IV fluids. Mechanical and chemical DVT prophylaxis. Encourage incentive spirometry to prevent atelectasis. Plan inpatient rehabilitation placement tomorrow if bed available. Koko Cedillo MD Oct 11, 2017 14:59
[2017-10-11] MEDS: ENOXAPARIN SODIUM 40 MG/0.4 ML SYRINGE SQ SCH (19:42)
[2017-10-11] MEDS: SODIUM CHLORIDE 0.9% FLUSH 10 ML FLUSH IV FLUSH SCH (19:43)
[2017-10-12] VITALS (7 sets, daily range): BP systolic 99–116; BP diastolic 58–82; PULSE 85–112; RESP 17–20; TEMP 97–99.1; O2SAT 93–100
[2017-10-12] MEDS: KETOROLAC TROMETHAMINE 30 MG/ML (IVP) VIAL IV PUSH SCH ×2 (00:11→06:18)
[2017-10-12] MEDS: METOCLOPRAMIDE HCL 10 MG/2 ML VIAL IVS SCH ×2 (00:12→08:45)
[2017-10-12] MEDS: PROMETHAZINE INJ 25 MG/ML VIAL IM PRN ×2 (00:14→16:36)
[2017-10-12] MEDS: oxyCODONE/ACETAMINOPHEN 10 MG/325 MG TAB PO PRN ×3 (00:24→16:35)
[2017-10-12] MEDS: SIMETHICONE 80 MG CHEWABLE TAB CHEW PRN (06:32)
[2017-10-12] MEDS: PANTOPRAZOLE SOD 20 MG DELAYED RELEASE TAB PO SCH ×2 (06:32→08:46)
[2017-10-12] MEDS: LACTULOSE SYRUP 20 GM/30 ML CUP PO SCH (08:45)
[2017-10-12] MEDS: DILTIAZEM-CD 240 MG CAP ER PO SCH (08:45)
[2017-10-12] MEDS: LOSARTAN 50 MG TAB PO SCH (08:46)
[2017-10-12] MEDS: ATENOLOL 25 MG TAB PO SCH (08:46)
[2017-10-12] MEDS: DOCUSATE SODIUM 50 MG/SENNA 8.6 MG TAB PO SCH ×2 (08:46→19:58)
[2017-10-12] MEDS: BISACODYL EC 5 MG TABEC PO SCH (08:46)
[2017-10-12] MEDS: MULTIVITAMINS/MINERALS THERAPEUTIC TAB PO SCH (08:46)
[2017-10-12] MEDS: SODIUM CHLORIDE 0.9% FLUSH 10 ML FLUSH IV FLUSH SCH ×2 (08:47→19:59)
[2017-10-12] MEDS: SENNOSIDES 8.6 MG TAB PO SCH ×2 (08:49→19:59)
--- NOTE | 2017-10-12 11:42 | HHI.PR ---
Subjective Remarks Abdomen more distended and uncomfortable. Refused KUB this AM Now agreeable to Suppository after discussion with her. Objective Vitals Vital Signs Date Time Temp Pulse Resp B/P (MAP) Pulse Ox O2 Delivery O2 Flow Rate FiO2 10/12/17 09:52 Nasal Cannula 2.00 10/12/17 09:05 100 21 10/12/17 07:50 97.6 86 18 102/63 (76) 97 10/12/17 04:00 97.0 85 20 112/63 (79) 98 10/12/17 00:00 99.1 88 20 106/82 (90) 97 10/11/17 20:00 97.9 84 18 106/66 (79) 94 10/11/17 19:38 94 Nasal Cannula 2.00 10/11/17 17:40 95 Nasal Cannula 3.00 10/11/17 12:00 98.6 91 18 111/69 (83) 95 I/O 10/11/17 10/11/17 10/11/17 10/12/17 10/12/17 10/12/17 07:00 15:00 23:00 07:00 15:00 23:00 Intake Total 640 ml 720 ml 220 ml Output Total 500 ml Balance 640 ml 720 ml -280 ml Intake Oral 240 ml 720 ml 220 ml IV Total 400 ml Output Urine Total 500 ml # Voids 9 5 # Bowel Movements 0 0 Result Diagram: 10/11/17 0615 10/11/17 0615 Objective Remarks GENERAL: This is a well-nourished, well-developed patient, in no apparent distress. CARDIOVASCULAR: Normal rate and regular rhythm without murmurs, gallops, or rubs. RESPIRATORY: Good respiratory efforts. Breath sounds equal and clear to auscultation bilaterally. GASTROINTESTINAL: Abdomen soft, non-tender, non-distended. Normal active bowel sounds MUSCULOSKELETAL: Extremities without cyanosis, or edema. Dressing in lumbar area appear clean. NEURO: Alert & Oriented x4 to person, place, time, situation. Moves all ext x4 PSYCH: Appropriate mood and affect. Procedures S/P Lumbar L4-5 transforaminal interbody fusion; L3-4 and L4-5 decompressive laminotomies and microdiscectomy; L4-5 pedicle screw fixation; L4-5 interbody cage placement on 10/08/17 A/P Problem List: (1) Status post laminectomy ICD Code: Z98.890 - Other specified postprocedural states (2) Intractable low back pain ICD Code: M54.5 - Low back pain (3) Constipation ICD Code: K59.00 - Constipation, unspecified Assessment and Plan 57-year-old female patient with a known medical history of hypertension, GERD and breast cancer who underwent a lumbar L4-5 transforaminal interbody fusion; L3-4 and L4-5 decompressive laminotomies and microdiscectomy; L4-5 pedicle screw fixation; L4-5 interbody cage placement by Dr. Cedillo. Hospitalist team following for medical management. Status post laminectomy with fusion by Dr. Cedillo 10/08/17 Management per neurosurgery team. Lumbar brace on when OOB. Pain control Zofran prn nausea Supplemental as to as needed, keep oxygen saturations above 92%. Supportive care. Constipation/ileus: Patient previously refused suppository - Agreeable to suppository today. Discussed with RN. - Continue with stool softeners and laxatives as needed. -Follow-up abdominal exam. Patient understands she may need further imaging if symptoms not resolving. Hypertension, chronic, controlled Continue home medications including losartan, Cardizem and atenolol. Monitor BP trends and adjust treatment accordingly. GERD Continue home PPI. Right breast cancer, status post right lumpectomy with radiation currently undergoing p.o. chemotherapy: Continue home medications. Supportive care. DVT prophylaxis: Lovenox 40mg sq Discharge Planning DC planning to rehab per primary team. Halima Arias MD Oct 12, 2017 11:42
--- NOTE | 2017-10-12 13:25 | RADRPT ---
EXAM DATE/TIME: 10/12/2017 12:45 [facility] COMPARISON: No previous studies available for comparison. INDICATIONS : Evaluate for obstruction. MEDICAL HISTORY : Hypertension. Carcinoma, breast. Osteoarthritis. GERD. SURGICAL HISTORY : Appendectomy. Cholecystectomy. Lumpectomy, right. ENCOUNTER: Subsequent ACUITY: 4 - 6 days PAIN SCORE: 7/10 LOCATION: Bilateral Lower abdomen FINDINGS: Air is seen throughout the ascending and transverse colon to the splenic flexure. The colon is promin ent measuring up to 6 cm. No significant paucity of bowel gas in the small bowel. No gross free air o r pneumatosis. Small calcifications in the pelvis likely reflect phleboliths. Postsurgical features o f L4-L5 left posterior fixation. CONCLUSION: 1. Mildly dilated air filled colon may reflect mild colonic ileus. 2. No dilated small bowel loops to suggest small bowel obstruction. Fili Flores MD on October 12, 2017 at 13:21 Board Certified Radiologist. This report was verified electronically.
--- NOTE | 2017-10-12 15:08 | HHI.NSPN ---
History Chief Complaint: Incisional pain and constipation Interval History 10/09/17: Pt s/p lumbar L4-5 transforaminal interbody fusion; L3-4 and L4-5 decompressive laminotomies and microdiscectomy; L4-5 pedicle screw fixation; L4- 5 interbody cage placement on 10/08/17. She complains of severe pain this morning. She complains of incisional pain radiating into the left leg but is not clear on exact distribution. She states her legs feel sensitive all over. She also has some nausea. 10/12/17: Pt awake and alert. States feeling better. No radiculopathy in LEs. She gets cramps in bilateral anterior thighs. Had a BM this afternoon. Ambulates short distance. Review of Systems General: Negative for: fever, chills, insomnia Respiratory: Negative for: shortness of breath, cough, sputum Cardiovascular: Negative for: chest pain Gastrointestinal: Negative for: nausea, vomitting, diarrhea, constipation Exam Results Vital Signs Date Time Temp Pulse Resp B/P (MAP) Pulse Ox O2 Delivery O2 Flow Rate FiO2 10/12/17 12:25 98.1 90 17 111/67 (82) 93 10/12/17 09:52 Nasal Cannula 2.00 10/12/17 09:05 21 Intake and Output 10/12/17 10/12/17 10/13/17 08:00 16:00 00:00 Intake Total 220 ml 400 ml Output Total 500 ml Balance -280 ml 400 ml Physical Examination General: Pt resting in bed interacting with family members at bedside. Resp: CTA bilaterally Heart: NSR no murmurs Abd: Soft positive bs Skin: No cyanosis or erythema. Muscle: Moves LEs with good strength bilaterally. Ambulated short distance. Neuro: Pt awake and alert. Follows commands well. Speech clear and appropriate. Lab, Micro, Other Results Last Impressions Abdomen X-Ray 10/12/17 0000 Signed Impressions: Service Date/Time: Thursday, October 12, 2017 12:45 - CONCLUSION: 1. Mildly dilated air filled colon may reflect mild colonic ileus. 2. No dilated small bowel loops to suggest small bowel obstruction. Fili Flores MD Lumbar Spine X-Ray 10/08/17 0000 Signed Impressions: Service Date/Time: September 09:13 - CONCLUSION: 1. Surgical hardware in excellent position. 2. Good alignment of the lumbar spine. Armond Sultana MD Chest X-Ray 10/08/17 0000 Signed Impressions: Service Date/Time: September 13:43 - CONCLUSION: 1. Left central line in superior vena cava without pneumothorax. Scattered subsegmental atelectasis in the lungs. Baldomero Pelayo MD 10/12/17 10/12/17 10/13/17 15:00 23:00 07:00 Intake Total 400 ml Balance 400 ml IV Total 400 ml Medical Decision Making Impression and Plan A: 57 y/o FM s/p L3/L4 and L4/L5 decompressive laminectomy with L4/L5 TLIF with cage and pedicle screw fixation. P: Continue to monitor Quick draw lumbar brace on when oob. Inpatient rehab. Pawan Wilkerson Oct 12, 2017 15:08
[2017-10-12] MEDS: ENOXAPARIN SODIUM 40 MG/0.4 ML SYRINGE SQ SCH (19:55)
[2017-10-13] VITALS: BP 123/65; PULSE 94; RESP 18; TEMP 99.1; O2SAT 96
[2017-10-13] MEDS: PROMETHAZINE INJ 25 MG/ML VIAL IM PRN (01:36)
[2017-10-13] MEDS: RESP: ALBUTEROL 2.5 MG/3 ML NEB (PRN) NEB (02:42)
[2017-10-13 04:00] VITALS: BP 137/69; PULSE 113; RESP 18; TEMP 99.8; O2SAT 94
[2017-10-13] MEDS: oxyCODONE/ACETAMINOPHEN 10 MG/325 MG TAB PO PRN (05:05)
[2017-10-13 08:00] VITALS: BP 117/65; PULSE 104; RESP 18; TEMP 97.7; O2SAT 98
[2017-10-13] MEDS: BISACODYL EC 5 MG TABEC PO SCH (09:00)
[2017-10-13] MEDS: LACTULOSE SYRUP 20 GM/30 ML CUP PO SCH (09:00)
[2017-10-13] MEDS: DOCUSATE SODIUM 50 MG/SENNA 8.6 MG TAB PO SCH (09:00)
[2017-10-13] MEDS: ATENOLOL 25 MG TAB PO SCH (09:00)
[2017-10-13] MEDS: PANTOPRAZOLE SOD 20 MG DELAYED RELEASE TAB PO SCH (09:27)
[2017-10-13] MEDS: LOSARTAN 50 MG TAB PO SCH (09:27)
[2017-10-13] MEDS: DILTIAZEM-CD 240 MG CAP ER PO SCH (09:27)
[2017-10-13] MEDS: MULTIVITAMINS/MINERALS THERAPEUTIC TAB PO SCH (09:27)
[2017-10-13] MEDS: SODIUM CHLORIDE 0.9% FLUSH 10 ML FLUSH IV FLUSH SCH (09:32)
[2017-10-13] MEDS ORDERED: oxyCODONE/ACETAMINOPHEN 5 MG/325 MG TAB PO PRN (10:30)
[2017-10-13] MEDS ORDERED: ACETAMINOPHEN 325 MG TAB PO PRN (10:30)
[2017-10-13] MEDS: SENNOSIDES 8.6 MG TAB PO SCH (11:00)
--- NOTE | 2017-10-13 11:02 | HHI.PR ---
Subjective Remarks Follow-up visit status post laminectomy, abdominal distention, constipation. Patient seen and examined today sitting in the chair. Patient is very upset regarding how she is being treated in the unit. States that she has not gotten any help especially with cleaning the bathroom. She also complains that she was confused yesterday because she was given higher dosage of Percocet. States that she usually takes 5 of Percocet at home however she was given 10s in the unit. Patient states that abdominal pain and discomfort has resolved. She also states that she had bowel movements yesterday afternoon and evening and had explosive diarrhea because of the medications that she was given for her constipation. States her dressing change in the back has not been changed. Otherwise, States today her abdomen is better, denies nausea, vomiting, diarrhea. Denies any fevers, chills. Chest pain, palpitations, shortness of breath or dyspnea. Objective Vitals Vital Signs Date Time Temp Pulse Resp B/P (MAP) Pulse Ox O2 Delivery O2 Flow Rate FiO2 10/13/17 08:00 97.7 104 18 117/65 (82) 98 10/13/17 04:00 99.8 113 18 137/69 (91) 94 10/13/17 00:00 99.1 94 18 123/65 (84) 96 10/12/17 20:00 97.9 86 17 99/58 (72) 93 10/12/17 16:00 98.8 112 18 116/62 (80) 94 10/12/17 12:25 98.1 90 17 111/67 (82) 93 I/O 10/12/17 10/12/17 10/12/17 10/13/17 10/13/17 10/13/17 07:00 15:00 23:00 07:00 15:00 23:00 Intake Total 220 ml 1360 ml 240 ml Output Total 500 ml Balance -280 ml 1360 ml 240 ml Intake Oral 220 ml 960 ml 240 ml IV Total 400 ml Output Urine Total 500 ml # Voids 3 1 # Bowel Movements 0 2 0 Result Diagram: 10/11/17 0615 10/11/17 0615 Imaging Last Impressions Abdomen X-Ray 10/12/17 0000 Signed Impressions: Service Date/Time: Thursday, October 12, 2017 12:45 - CONCLUSION: 1. Mildly dilated air filled colon may reflect mild colonic ileus. 2. No dilated small bowel loops to suggest small bowel obstruction. Fili Flores MD Lumbar Spine X-Ray 10/08/17 0000 Signed Impressions: Service Date/Time: September 09:13 - CONCLUSION: 1. Surgical hardware in excellent position. 2. Good alignment of the lumbar spine. Armond Sultana MD Chest X-Ray 10/08/17 0000 Signed Impressions: Service Date/Time: September 13:43 - CONCLUSION: 1. Left central line in superior vena cava without pneumothorax. Scattered subsegmental atelectasis in the lungs. Baldomero Pelayo MD Objective Remarks GENERAL: This is a well-nourished, well-developed patient, in no apparent distress. SKIN: Warm and dry. HEENT: Normocephalic. Pupils equal round and reactive. Nose without bleeding. Airway patent. NECK: Trachea midline. No JVD. Supple. CARDIOVASCULAR: Regular rate and rhythm without murmurs, gallops, or rubs. RESPIRATORY: Clear to auscultation. Breath sounds equal bilaterally. No wheezes , rales, or rhonchi. GASTROINTESTINAL: Abdomen soft, non-tender, nondistended. Bowel Sounds normoactive x4. MUSCULOSKELETAL: Extremities without clubbing, cyanosis. Lateral lower extremity trace edema. Lumbar brace in place. NEUROLOGICAL: Awake and alert. Oriented to time, place, person. No focal neuro deficit. Moves all extremities. Normal speech. Procedures S/P Lumbar L4-5 transforaminal interbody fusion; L3-4 and L4-5 decompressive laminotomies and microdiscectomy; L4-5 pedicle screw fixation; L4-5 interbody cage placement on 10/08/17 A/P Problem List: (1) Status post laminectomy ICD Code: Z98.890 - Other specified postprocedural states (2) Intractable low back pain ICD Code: M54.5 - Low back pain (3) Constipation ICD Code: K59.00 - Constipation, unspecified Assessment and Plan 57-year-old female patient with a known medical history of hypertension, GERD and breast cancer who underwent a lumbar L4-5 transforaminal interbody fusion; L3-4 and L4-5 decompressive laminotomies and microdiscectomy; L4-5 pedicle screw fixation; L4-5 interbody cage placement by Dr. Cedillo. Hospitalist team following for medical management. Status post laminectomy with fusion by Dr. Cedillo 10/08/17 -Management per neurosurgery team. Lumbar brace on when OOB. -Pain control, decrease Percocet to 5/325mg -Zofran prn nausea -Supportive care to meet demands. Constipation/ileus: Patient previously refused suppository -Continue with stool softeners and laxatives as needed. -Abdominal exam benign -States she had bowel movement yesterday after the evening. Hypertension, chronic, controlled -Continue home medications including losartan, Cardizem and atenolol. -Monitor BP trends and adjust treatment accordingly. GERD -Continue home PPI. Right breast cancer, status post right lumpectomy with radiation currently undergoing p.o. chemotherapy: -Continue home medications. Supportive care. DVT prophylaxis: Lovenox Discharge Planning Plan to discharge home by primary team to rehab today. Tomasa Dave Oct 13, 2017 11:02
[2017-10-13] MEDS ORDERED: OXYC1TAB63 PO (12:02)
--- NOTE | 2017-10-13 12:04 | HHI.NSPN ---
History Chief Complaint: Mild incisional pain Interval History 10/09/17: Pt s/p lumbar L4-5 transforaminal interbody fusion; L3-4 and L4-5 decompressive laminotomies and microdiscectomy; L4-5 pedicle screw fixation; L4- 5 interbody cage placement on 10/08/17. She complains of severe pain this morning. She complains of incisional pain radiating into the left leg but is not clear on exact distribution. She states her legs feel sensitive all over. She also has some nausea. 10/12/17: Pt awake and alert. States feeling better. No radiculopathy in LEs. She gets cramps in bilateral anterior thighs. Had a BM this afternoon. Ambulates short distance. 10/13/17: Pt awake and alert. States mild incisional pain. She states she was hallucinating on Percocet 10mg doing better on Percocet 5mg. No radiculopathy in LEs. Review of Systems General: Negative for: fever, chills, insomnia Respiratory: Negative for: shortness of breath, cough, sputum Cardiovascular: Negative for: chest pain Gastrointestinal: Negative for: nausea, vomitting, diarrhea, constipation Exam Results Vital Signs Date Time Temp Pulse Resp B/P (MAP) Pulse Ox O2 Delivery O2 Flow Rate FiO2 10/13/17 08:00 97.7 104 18 117/65 (82) 98 10/12/17 09:52 Nasal Cannula 2.00 10/12/17 09:05 21 Physical Examination General: Pt resting in bed interacting with family members at bedside. Resp: CTA bilaterally Heart: NSR no murmurs Abd: Soft positive bs Skin: No cyanosis or erythema in LEs. Muscle: Moves LEs with good strength bilaterally. Neuro: Pt awake and alert. Follows commands well. Speech clear and appropriate. Sensation intact in LEs. Lab, Micro, Other Results Last Impressions Abdomen X-Ray 10/12/17 0000 Signed Impressions: Service Date/Time: Thursday, October 12, 2017 12:45 - CONCLUSION: 1. Mildly dilated air filled colon may reflect mild colonic ileus. 2. No dilated small bowel loops to suggest small bowel obstruction. Fili Flores MD Lumbar Spine X-Ray 10/08/17 0000 Signed Impressions: Service Date/Time: September 09:13 - CONCLUSION: 1. Surgical hardware in excellent position. 2. Good alignment of the lumbar spine. Armond Sultana MD Chest X-Ray 10/08/17 0000 Signed Impressions: Service Date/Time: September 13:43 - CONCLUSION: 1. Left central line in superior vena cava without pneumothorax. Scattered subsegmental atelectasis in the lungs. Baldomero Pelayo MD Medical Decision Making Impression and Plan A: 57 y/o FM s/p L3/L4 and L4/L5 decompressive laminectomy with L4/L5 TLIF with cage and pedicle screw fixation. P: Continue to monitor Quick draw lumbar brace on when oob. Inpatient rehab. Pawan Wilkerson Oct 13, 2017 12:04
== END 2017-10-13 13:42 | DRG 454 ==
LOC: HSDI 10-08 05:47 → N06B 10-08 17:26
PROVIDERS: ADMIT Neurological Surgery; ATTEND Neurological Surgery
PROC: 0SG10J1 Fusion of 2 or more Lumbar Vertebral Joints with Synthetic Substitute, Posterior Approach, Posterior Column, Open Approach (ICD-10-PCS; 2017-10-08)
PROC: 0SB20ZZ Excision of Lumbar Vertebral Disc, Open Approach (ICD-10-PCS; 2017-10-08)
PROC: 0SG10AJ Fusion of 2 or more Lumbar Vertebral Joints with Interbody Fusion Device, Posterior Approach, Anterior Column, Open Approach (ICD-10-PCS; principal; 2017-10-08 08:45)
DX: M51.16 Intervertebral disc disorders with radiculopathy, lumbar region (principal); J98.11 Atelectasis; K56.7 Ileus, unspecified; I10 Essential (primary) hypertension; R44.3 Hallucinations, unspecified; M48.062 Spinal stenosis, lumbar region with neurogenic claudication; K21.9 Gastro-esophageal reflux disease without esophagitis; M51.26 Other intervertebral disc displacement, lumbar region; M51.36 Other intervertebral disc degeneration, lumbar region; M43.16 Spondylolisthesis, lumbar region; M96.1 Postlaminectomy syndrome, not elsewhere classified; M79.7 Fibromyalgia; G89.29 Other chronic pain; M19.90 Unspecified osteoarthritis, unspecified site; K59.00 Constipation, unspecified; D72.829 Elevated white blood cell count, unspecified; Z92.3 Personal history of irradiation; Z85.3 Personal history of malignant neoplasm of breast
CPT/HCPCS: 71045; 72100; 74018; 76000; 80048; 80053; 81001; 83036; 83605; 83735; 84100; 84155; 84439; 84443; 85025; 93005; 94640; 94664; C1713; J0131; J0690; J1650; J1885; J2250; J2270; J2370; J2405; J2550; J2710; J2765; J3010; J3370; J3480; J7050; J7120; J7613; L0627